=== PATIENT | male | born 1935 | race Caucasian/White ===

== ENCOUNTER → 2017-04-18 08:38 | Outpatient (CLI) | payer MEDICARE, SELFPAY ==
[2017-04-18 10:23] LABS: Cholesterol 174 mg/dL (200); High Density Lipoprotein 61 mg/dL; PSA,Total - Annual Screen 2.89 ng/mL (0.00-4.00); Triglycerides 125 mg/dL; Very Low Density Lipoprotein 25 mg/dL (5-40)
== END ==
PROVIDERS: Family Provider Family Medicine; PCP Family Medicine; Visit Provider Family Medicine
DX: Z00.00 Encounter for general adult medical examination without abnormal findings (principal); Z12.5 Encounter for screening for malignant neoplasm of prostate
CPT/HCPCS: 36415; 80061; 84153; G0103

== ENCOUNTER → 2018-01-13 08:24 | Outpatient (CLI) | payer MEDICARE, SELFPAY ==
[2018-01-13 10:38] LABS: Anion Gap 6 (5-15); BUN 17 mg/dL (7-18); BUN/Creat Ratio 13.4 RATIO (10-20); Calcium,Total 9.5 mg/dL (8.5-10.1); Chloride 106 mmol/L (98-107); Cholesterol 157 mg/dL (200); Creatinine, Serum 1.27 mg/dL (0.70-1.30); EST Glomerular Filtration Rate 57 mL/min (>60); Est Glom Filt Rate - Afr Amer 70 mL/min (>60); Glucose 90 mg/dL (74-106); High Density Lipoprotein 55 mg/dL; Potassium 5.2 mmol/L (3.5-5.1); Sodium Level 143 mmol/L (136-145); Triglycerides 109 mg/dL; Very Low Density Lipoprotein 22 mg/dL (5-40)
== END ==
PROVIDERS: Family Provider Family Medicine; PCP Family Medicine; Visit Provider Family Medicine
DX: I10 Essential (primary) hypertension (principal)
CPT/HCPCS: 36415; 80048; 80061

== ENCOUNTER → 2018-01-16 08:53 | Outpatient (CLI) | payer MEDICARE, SELFPAY ==
[2018-01-16 10:34] LABS: Anion Gap 5 (5-15); BUN 15 mg/dL (7-18); BUN/Creat Ratio 12.6 RATIO (10-20); Calcium,Total 9.1 mg/dL (8.5-10.1); Chloride 107 mmol/L (98-107); Creatinine, Serum 1.19 mg/dL (0.70-1.30); EST Glomerular Filtration Rate 62 mL/min (>60); Est Glom Filt Rate - Afr Amer 75 mL/min (>60); Glucose 93 mg/dL (74-106); Potassium 5.3 mmol/L (3.5-5.1); Sodium Level 143 mmol/L (136-145)
== END ==
PROVIDERS: Family Medicine; Family Provider Family Medicine; PCP Family Medicine; Visit Provider Family Medicine
DX: R94.4 Abnormal results of kidney function studies (principal)
CPT/HCPCS: 36415; 80048

== ENCOUNTER → 2018-01-22 09:16 | Outpatient (CLI) | payer MEDICARE, SELFPAY ==
[2018-01-22 10:26] LABS: Anion Gap 2 (5-15); BUN 17 mg/dL (7-18); BUN/Creat Ratio 15.7 RATIO (10-20); Chloride 106 mmol/L (98-107); Creatinine, Serum 1.08 mg/dL (0.70-1.30); EST Glomerular Filtration Rate 69 mL/min (>60); Est Glom Filt Rate - Afr Amer 84 mL/min (>60); Glucose 85 mg/dL (74-106); Potassium 4.7 mmol/L (3.5-5.1); Sodium Level 140 mmol/L (136-145)
== END ==
PROVIDERS: Family Medicine; Family Provider Family Medicine; PCP Family Medicine; Visit Provider Family Medicine
DX: E87.5 Hyperkalemia (principal)
CPT/HCPCS: 36415; 80048

== ENCOUNTER 2019-01-09 23:39 | Inpatient (IN) | payer MEDICARE, SELFPAY ==
[2019-01-09 23:40] VITALS: BP 161/82; PULSE 117; RESP 30; TEMP 36.4; O2SAT 72; BMI 21.7
--- NOTE | 2019-01-09 23:43 | ED.RN ---
PT PLACED ON O2 VIA NC AT 6L/MIN. PULSE OX INCREASED TO 94%. O2 DECREASEED TO 3L/MIN
[2019-01-09 23:44] VITALS: BP 161/82; PULSE 117; RESP 30; TEMP 36.4; O2SAT 72
[2019-01-09 23:45] VITALS: BP 188/103; PULSE 113; RESP 36; O2SAT 94
--- NOTE | 2019-01-09 23:56 | RAD_ITS ---
HISTORY: SOBShort of Breath/DyspneaRAD - Chest EXAM: XR Chest 1 View: COMPARISON: March 02, 2017 FINDINGS: # of images incl. paperwork: 1 Sternal wires are present. Mediastinal clips are present. Lungs remain hyperexpanded consistent with obstructive lung disease. Heart is not enlarged. Levoscoliosis with multilevel degenerative disc disease. Shoulder arthritis. Pulmonary vascularity is distinct. No pleural effusions. RAD/Chest 1 View (Portable) IMPRESSION: Pulmonary hyperexpansion suggestive of obstructive lung disease. No acute disease perceived. at 0020 Reported and signed by: Dano Jenkins MD Electronically Signed: Dano Jenkins MD at 0:19 EDT Tel , Service support ,
--- NOTE | 2019-01-09 23:56 | EKG12_ITS ---
Test Reason : SOB Blood Pressure : / mmHG Vent. Rate : 110 BPM Atrial Rate : 110 BPM P-R Int : 156 ms QRS Dur : 150 ms QT Int : 360 ms P-R-T Axes : 080 -81 072 degrees QTc Int : 487 ms Sinus tachycardia Possible Left atrial enlargement Left axis deviation Right bundle branch block Abnormal ECG Confirmed by MARGARETTE GONZALEZ, RENATA ([id number]), video editor KRISTI HERRMANN ([id number]) on 01/15/2019 10:15:29 AM Referred By: Dedrick Tsai Confirmed By:RENATA PFEIFFER MD
--- NOTE | 2019-01-09 23:58 | ED.VIS.GEN ---
History of Present Illness Chief Complaint: Shortness of Breath Informant: Patient Onset: Yesterday Context: Sudden Onset Timing: Waxes and wanes Current Severity: Severe Narrative: Patient is an 83-year-old male with history of coronary artery disease, ischemic cardiomyopathy, COPD and hypertension presenting with shortness of breath. Patient states that he has chronic coughing fits and episodes of shortness of breath that normally resolve with his albuterol inhaler. Since yesterday the coughing fits become more severe and are not improving with albuterol. Patient also notes he has had worsening pain in his back behind his shoulder blades. He states this feels like prior episode of pneumonia. He has had subjective fever. Patient had a particularly severe coughing episode just prior to arrival. He has had white sputum production. He currently denies any chest pain or back pain. He denies any vomiting but did feel nauseous with his last coughing episode. Any swelling of his extremities. He denies any history of pulmonary embolism or DVT. He is not on any anticoagulation. He denies any rash. He denies any other complaints at this time. Prior similar symptoms: Yes - Pneumonia Past Medical History - Allergies and Home Meds Allergies/Adverse Reactions: Allergies iodine Allergy (Severe, Verified 01/09/19 23:45) Rash amlodipine Adverse Reaction (Severe, Verified 01/09/19 23:45) SOB Past Medical History: - - COPD, coronary artery disease, ischemic cardiomyopathy, hypertension Surgical History: cholecystectomy, coronary bypass surgery Lives: With Family Smoking Status: Current every day smoker Review of Systems All systems negative except as indicated General: Reports: Fever, Subjective ENT: Reports: Rhinorrhea Respiratory: Reports: Dyspnea, Cough, Sputum Gastrointestinal: Reports: Nausea Physical Exam Vital Signs/Narrative: Vital Signs Temp Pulse Resp BP Pulse Ox 01/09/19 23:45 113 H 36 H 188/103 H 94 01/09/19 23:44 97.6 F L 117 H 30 H 161/82 H 72 01/09/19 23:40 97.6 F L 117 H 30 H 161/82 H 72 Inital Vital Signs reviewed: Yes General: Well nourished, Well developed, No Acute Distress Head: Normocephalic, Atraumatic Eyes: Perrl, EOMI ENT: No rhinorrhea, Dry mucous membranes Neck: Supple, Nontender Cardiovascular: Regular rhythm, No murmurs, Tachycardia Respiratory: Chest nontender, Wheezing - Diffuse, inspiratory and expiratory, Diminished - Bilaterally at the bases, - - Tachypneic. Negative for: Rales, Rhonchi Abdomen: Soft, Nontender, Nondistended, Normal bowel sounds Back: Nontender, Normal Inspection Extremities: Nontender, No edema Skin: Normal color, No rash Neurological: Alert, Oriented x3, Cranial nerves II-XII grossly intact, Normal Strength, Normal Sensation Psychological: Normal affect, Normal Mood Diagnostic/Tx/Re-eval Chest X-Ray - ED: 1 View, Read by ED Physician, Read by Radiologist, No Acute Disease, - - Hyperinflation Clinical Impression(s) from Imaging Studies Chest X-Ray 01/09/19 23:56 IMPRESSION: Pulmonary hyperexpansion suggestive of obstructive lung disease. No acute disease perceived. at 0020 Reported and signed by: Dano Jenkins MD Electronically Signed: Dano Jenkins MD at 0:19 EDT Tel , Service support , Laboratory Data 01/09/19 01/09/19 01/10/19 23:55 23:55 00:05 WBC 14.1 H RBC 5.35 Hgb 17.4 H Hct 52.8 MCV 98.7 H MCH 32.5 H MCHC 33.0 RDW Std Deviation 43.3 RDW Coeff of Alis 11.9 Plt Count 284 MPV 9.2 Immature Gran % (Auto) 0.300 Neut % (Auto) 74.2 H Lymph % (Auto) 16.4 L [place] % (Auto) 7.2 Eos % (Auto) 1.3 Baso % (Auto) 0.6 Absolute Neuts (auto) 10.5 H Absolute Lymphs (auto) 2.32 Nucleated RBC % 0 Sodium 140 Potassium 4.8 Chloride 104 Carbon Dioxide 28.0 Anion Gap 8 BUN 21 H Creatinine 1.17 Estim Creat Clear Calc 43.21 Est GFR (MDRD) Af Amer 76 Est GFR (MDRD) Non-Af 63 BUN/Creatinine Ratio 17.9 Glucose 138 H Lactic Acid 1.8 Calcium 9.8 Troponin I < 0.015 - Rhythm Strip Rhythm Strip: Sinus Tach Rate: 110 Ectopy: None - EKG Initial EKG Interpretation: Sinus Tachycardia, RBBB, - - Sinus tachycardia at a rate of 110 MA interval 156 QRS 150 QT/QTc 360/487 Left axis deviation Right bundle branch block Compared to prior EKG on 03/02/2017 patient is now tachycardic and has more pronounced T wave depressions in V1 through V2 - Medical Decision Making Patient is evaluated for worsening shortness of breath. It seems that the shortness of breath has been worsening over the past 2 days but significantly worsened tonight. When patient arrived to the ER he was hypoxic in respiratory distress with an O2 sat in the low 70s. Patient is placed on nasal cannula did have improvement of his breathing however he continued to be tachycardic and tachypneic. Patient had very tight lung sounds with wheezing. He was given IV steroids as well as stacked breathing treatments. On reevaluation patient did have significant improvement. He was still requiring some supplementary oxygen. Patient did have a leukocytosis and I am not sure if it was reactive versus infectious. Flu swab was negative. BMP showed a mild hyperglycemia but no other acute process. Chest x-ray did not show acute infiltrates. Clinically patient does not have signs of fluid overload. I suspect this is COPD exacerbation. Patient will require admission because of his profound hypoxia on admission. Tachycardia did improve as his breathing improved. Patient is admitted to the general medical floor in stable condition. Discussed the case with Dr. Tse who is agreeable with this plan. Patient is empirically given broad-spectrum antibiotic to cover for community acquired pneumonia based on his presentation and leukocytosis. ED Disposition - Plan for ED Patient: Disposition: Acute Care [facility] Diagnosis: COPD exacerbation, Acute respiratory failure with hypoxia
[2019-01-10] VITALS (22 sets, daily range): BP systolic 97–143; BP diastolic 40–74; PULSE 68–102; RESP 18–26; TEMP 36.6–37.1; O2SAT 91–98; BMI 22.2; BMI 22.3
[2019-01-10 00:06] LABS: Absolute Lymphocyte Count 2.32 X10^3/uL (0.83-4.51); Absolute Neutrophil Count 10.5 X10^3/uL (2.0-7.7); Basophil# 0.09 X10^3/uL; Basophil% 0.6 % (0-1); Eosinophil# 0.18 X10^3/uL; Eosinophils% 1.3 % (0-5); Hematocrit 52.8 % (40-54); Hemoglobin 17.4 g/dL (13.0-16.5); Lymphocyte # 2.32 X10^3/ul (4.0); Lymphocyte % 16.4 % (19-41); Mean Corpuscular Hgb 32.5 pg (27.0-32.0); Mean Corpuscular Volume 98.7 fL (80-94); Mean Platelet Vol. 9.2 fl (6.2-12.0); Monocyte# 1.02 X10^3/uL; Monocyte% 7.2 % (0-10); NRBC Flagged by Analyzer 0 % (0-5); Neutrophil # 10.48 X10^3/uL (2.7-7.7); Neutrophil % 74.2 % (47-70); Platelet Count 284 K/mm3 (150-450); RBC Distribution Width CV 11.9 % (11.6-14.6); RBC Distribution Width SD 43.3 fl (35.1-43.9); Red Blood Count 5.35 M/mm3 (4.6-6.2); White Blood Count 14.1 K/mm3 (4.4-11.0)
[2019-01-10] MEDS: Ipratropium/Albuterol Sulfate 3 ML AMPUL.NEB INHALATION ×3 (00:12→13:20)
[2019-01-10] MEDS: Albuterol 2.5 MG/3 ML VIAL.NEB. INHALATION (00:12)
[2019-01-10 00:23] LABS: Anion Gap 8 (5-15); BUN 21 mg/dL (7-18); BUN/Creat Ratio 17.9 RATIO (10-20); Calcium,Total 9.8 mg/dL (8.5-10.1); Chloride 104 mmol/L (98-107); Creatinine, Serum 1.17 mg/dL (0.70-1.30); EST Glomerular Filtration Rate 63 mL/min (>60); Est Glom Filt Rate - Afr Amer 76 mL/min (>60); Estimated Creatinine Clearance 43.21 ml/min; Glucose 138 mg/dL (74-106); Potassium 4.8 mmol/L (3.5-5.1); Sodium Level 140 mmol/L (136-145)
[2019-01-10] MEDS: MethylPREDNISolone 125 MG/2 ML Vial IV (00:23)
[2019-01-10 00:54] LABS: Lactic Acid 1.8 mmol/L (0.4-2.0)
--- NOTE | 2019-01-10 01:33 | PCM.HP.STD ---
Problem List (1) COPD exacerbation Status: Acute History of Present Illness Date of Admission: 01/10/19 Chief Complaint: shortness of breath The patient is a 83 year old M with a significant history of tobacco abuse; CAD status post triple-vessel CABG and coronary stents; hypertension; COPD without home oxygen; and ischemic cardiomyopathy who presented to emergency department with a 2-day history of shortness of breath at rest. Associated with symptoms is productive cough of thick clear sputum; and wheezing. Patient used his home inhalers multiple times without any real relief. Associated his symptoms is subjective fever and some chills. At the emergency department patient was found to have oxygen saturation of 76% on room air . His EKG showed sinus tachycardia with right bundle branch block. At the emergency department patient was found to have leukocytosis. Also he reports abdominal pain; chest pain and back pain that he associated with gas. His pain was relieved after he burped. Past Medical History Past Medical History (Chronic Problems): Chronic Problems (Last Reviewed 01/10/19 @ 02:38 by Dedrick Tsai MD) History of coronary artery stent placement (Chronic) PVCs (premature ventricular contractions) (Chronic) Atherosclerotic heart disease of [place] coronary artery without angina pectoris (Chronic) Chronic obstructive pulmonary disease (Chronic) Hypertension (Chronic) Ischemic cardiomyopathy (Chronic) EF 35% Medical History: Medical History (Last Reviewed 01/10/19 @ 02:38 by Dedrick Tsai MD) PVCs (premature ventricular contractions) (Chronic) I49.3 Atherosclerotic heart disease of [place] coronary artery without angina pectoris (Chronic) I25.10 Chronic obstructive pulmonary disease (Chronic) J44.9 Hypertension (Chronic) I10 Ischemic cardiomyopathy (Chronic) I25.5 EF 35% Allergies iodine Allergy (Severe, Verified 01/09/19 23:45) Rash amlodipine Adverse Reaction (Severe, Verified 01/09/19 23:45) SOB Home Medications: Ambulatory Orders Medication Instructions Recorded B Complex with Vitamin C 1 ea PO DAILY 09/16/16 [B-Complex Plus Vitamin C] Cyanocobalamin [Vitamin B12] 500 mcg PO DAILY@0800 09/16/16 Magnesium Oxide [Mag-Ox 400] 400 mg PO DAILY 09/16/16 Multivitamin [Multiple Vitamins] 1 ea PO DAILY 09/16/16 Red Yeast Rice 600 mg PO DAILY 09/16/16 furosemide 20 mg tablet 20 mg PO .As needed PRN tab 05/05/17 lisinopril 2.5 mg tablet 2.5 mg PO DAILY #90 tab 11/10/17 aspirin 81 mg tablet,delayed 81 mg PO .COMPLEX 11/18/17 release fluticasone furoate 100 1 inh INHALATION DAILY 11/18/17 mcg-vilanterol 25 mcg/dose inhalation powder Surgical History: Surgical History (Last Reviewed 01/10/19 @ 02:36 by Dedrick Tsai MD) History of coronary artery stent placement (Chronic) Z95.5 S/P CABG (coronary artery bypass graft) (Resolved) Onset Date: ~2002 Z95.1 VIVEROS to the LAD, SVG to the ramus intermedius circumflex branch, SVG to the PDA 2003 History of transurethral resection of prostate Z98.890, Z90.79 Surgical History: cholecystectomy, coronary bypass surgery Lives: With Family Smoking Status: Current every day smoker Tobacco Use: Pipe Alcohol: None Review of Systems Constitutional: Reports: Chills, Fever - Subjective. Denies: Weight Change HEENT: Denies: Head Aches, Sinus Congestion, Sinus Drainage Cardiovascular: Reports: Chest Pain - Resolved. Denies: Palpitations Respiratory: Reports: Cough, Shortness of breath at rest, Sputum production Gastrointestinal: Reports: Abdominal Pain - Resolved, Constipation - Resolved. Denies: Nausea, Vomiting Genitourinary: Denies: Dysuria Musculoskeletal: Reports: Back Pain - Resolved. Denies: Joint Pain, Joint Tenderness Skin: Denies: Rash, Wounds Neurological: Denies: Numbness, Tingling, Focal weakness Psychiatric: Denies: Anxiety, Depression, Homicidal Ideations, Suicidal Ideations Hematologic/ Lymphatic: Denies: Easy Bruising, Easy Bleeding VTE Information - Inpt Only VTE Present on Admission: No VTE Mechan Device Prophylaxis: None VTE Pharm Prophylaxis ordered?: Yes Patient Problems: Active and Suspected Problems (Last Reviewed 01/10/19 @ 02:38 by Dedrick Tsai MD) COPD exacerbation (Acute) - Physical Exam General: Alert, Oriented x3, Cooperative HEENT: Atraumatic, PERRLA, EOMI, Normocephalic Neck: Supple, No JVD, Negative Carotid Bruits Lungs: No rales, Tachypneic, Wheezes Cardiovascular: No murmurs Abdomen: Bowel Sounds Present, Soft, Non Tender Extremities: No edema, Capillary Refill Less than 3 Seconds Skin: No rashes, No breakdown Musculoskeletal: No Tenderness to Palpation of Joints or Extremities Neurological: Cranial nerves II-XII grossly intact Psych/Mental Status: Normal Affect, Appropriate Vital Signs Temp Pulse Resp BP Pulse Ox 97.6 F L 102 H 26 H 188/103 H 94 01/09/19 23:44 01/10/19 00:12 01/10/19 00:12 01/09/19 23:45 01/09/19 23:45 Oxygen Flow Rate (L/min) 4 Oxygen Delivery Method Nasal Cannula Weight: 65 kg Body Mass Index (BMI) 21.7 Intake and Output for Last 24 Hours 01/08/19 01/09/19 01/10/19 23:59 23:59 23:59 Intake Total 500 / 500 Balance 500 / 500 Microbiology Past 72 Hours 01/10/19 00:36 Influenza Types A,B Direct FA (MARCELINO) - Final Mucosa - Nose Laboratory Tests Past 24 Hrs 01/09/19 01/09/19 01/10/19 23:55 23:55 00:05 WBC 14.1 H RBC 5.35 Hgb 17.4 H Hct 52.8 MCV 98.7 H MCH 32.5 H MCHC 33.0 RDW Std Deviation 43.3 RDW Coeff of Alis 11.9 Plt Count 284 MPV 9.2 Immature Gran % (Auto) 0.300 Neut % (Auto) 74.2 H Lymph % (Auto) 16.4 L [place] % (Auto) 7.2 Eos % (Auto) 1.3 Baso % (Auto) 0.6 Absolute Neuts (auto) 10.5 H Absolute Lymphs (auto) 2.32 Nucleated RBC % 0 Sodium 140 Potassium 4.8 Chloride 104 Carbon Dioxide 28.0 Anion Gap 8 BUN 21 H Creatinine 1.17 Estim Creat Clear Calc 43.21 Est GFR (MDRD) Af Amer 76 Est GFR (MDRD) Non-Af 63 BUN/Creatinine Ratio 17.9 Glucose 138 H Lactic Acid 1.8 Calcium 9.8 Troponin I < 0.015 Assessment/Plan All Active Problems (Last Reviewed 01/10/19 @ 02:36 by Dedrick Tsai MD) COPD exacerbation (Acute) S/P CABG (coronary artery bypass graft) (Resolved ~2002) The patient is a 83 year old M with a significant history of tobacco abuse; CAD status post triple-vessel CABG and coronary stents; hypertension; COPD without home oxygen; and ischemic cardiomyopathy who presented to emergency department with a 2-day history of shortness of breath at rest; wheezing; subjective fever; chills; and productive cough consistent with acute exacerbation of COPD. Acute exacerbation of COPD CXR independently reviewed confirms hyperinflation with some flattening of diaphragm but with no acute cardiopulmonary process. EKG independently reviewed confirms sinus tach with right bundle branch block. Vital signs on presentation showed tachycardia and tachypnea; and with use of accessory muscles of respiration while at the emergency department and requiring to be placed on 3 to 4 L of nasal cannula oxygen secondary to hypoxia. Noted to have neutrophilic leukocytosis. Scheduled DuoNeb Albuterol as needed. Home corticosteroid inhaler continued. Received Solu-Medrol at the emergency department. Solu-Medrol continued Ceftriaxone and azithromycin was ordered emergency department. Will continue patient on Augmentin. Expectorant ordered. Oxygen as needed to maintain oxygen saturation more than 90%. Monitor CBC Gastroesophageal reflux disease Mylanta as needed ordered. Hypertension His blood pressure is stable in regard to his age. Lisinopril continued. Trend blood pressure and adjust blood pressure medication. Ischemic cardiomyopathy Aspirin continued. Tobacco abuse He smokes pipe. He declined nicotine patch since he does not smoke the pipe all the time. Counseled. 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 Likely secondary to smoking and COPD. DVT prophylaxis Subcutaneous Lovenox Code Visit Inpatient E&M: 30058 Init Hosp L3
[2019-01-10] MEDS: Ceftriaxone 1 GM/50 ML BAG IV (01:52)
[2019-01-10] MEDS: 0.9% Saline Lock 10 ML Syringe IV ×3 (02:58→21:07)
[2019-01-10 05:54] LABS: Absolute Lymphocyte Count 0.35 X10^3/uL (0.83-4.51); Absolute Neutrophil Count 8.7 X10^3/uL (2.0-7.7); Basophil# 0.02 X10^3/uL; Basophil% 0.2 % (0-1); Hematocrit 43.1 % (40-54); Hemoglobin 14.3 g/dL (13.0-16.5); Lymphocyte # 0.35 X10^3/ul (4.0); Lymphocyte % 3.8 % (19-41); Mean Corp Hgb Conc 33.2 g/dL (32-36); Mean Corpuscular Hgb 32.4 pg (27.0-32.0); Mean Corpuscular Volume 97.5 fL (80-94); Mean Platelet Vol. 9.5 fl (6.2-12.0); Monocyte# 0.05 X10^3/uL; Monocyte% 0.5 % (0-10); NRBC Flagged by Analyzer 0 % (0-5); Neutrophil # 8.66 X10^3/uL (2.7-7.7); Neutrophil % 95.2 % (47-70); POSITIVE DIFFERENTIAL YES; Platelet Count 245 K/mm3 (150-450); RBC Distribution Width CV 12.1 % (11.6-14.6); RBC Distribution Width SD 43.5 fl (35.1-43.9); Red Blood Count 4.42 M/mm3 (4.6-6.2); White Blood Count 9.1 K/mm3 (4.4-11.0)
[2019-01-10 05:57] LABS: Differential Indicated SCAN CRITERIA MET
[2019-01-10 06:40] LABS: Differential Comment SCANNED
[2019-01-10] MEDS: Multivitamins,Therapeutic Tablet 1 TABLET PO (08:54)
[2019-01-10] MEDS: Cyanocobalamin 500 MCG Tablet PO (08:54)
[2019-01-10] MEDS: Vitamin B Comp W-C Capsule 1 CAP PO (08:54)
--- NOTE | 2019-01-10 09:49 | PN_ITS ---
Patient Problems: Active and Suspected Problems (Last Reviewed 01/10/19 @ 02:38 by Dedrick Tsai MD) COPD exacerbation (Acute) Acute respiratory failure with hypoxia (Acute) Subjective: Chief complaint: Follow-up after admission for acute COPD exacerbation with acute hypoxic respiratory failure. Patient seen and examined. No acute events overnight. Today, patient mentioned that his breathing is getting better compared to yesterday. He does have cough but without phlegm which is difficult to expectorate. He has no more pleuritic chest pain. He has been afebrile, blood pressure and heart rate are stable, pulse ox is 93% on 2 L. - Physical Exam General: Alert, Oriented x3, Cooperative, - - Minimally short of breath. HEENT: Atraumatic, PERRLA, EOMI, Normocephalic Oral: Moist Mucosa, No Gingival or Mucosal Lesions/ Ulcerations Neck: Supple, No JVD, Negative Carotid Bruits, Trachea Midline, Thyroid Normal Size and Texture Lungs: No rhonchi, No rales, Diminished, Short of Breath, Wheezes, - - Decreased breath sounds bilateral, bilateral end expiratory wheezes. Cardiovascular: Regular rate, Regular Rhythm, Normal S1, Normal S2, PMI Normal Abdomen: Bowel Sounds Present, Soft, Non Tender, Non-Distended, No Hepato- splenomegaly Extremities: No clubbing, No cyanosis, No edema Skin: No rashes, No breakdown Lymphatic: No Cervical, Supraclavicular, or Inguinal Adenopathy Neurological: Cranial nerves II-XII grossly intact, Motor Exam 5/5 strength throughout Psych/Mental Status: Normal Affect, Appropriate, Alert and oriented to time, place, person, mood and affect Vital Signs Temp Pulse Resp BP Pulse Ox 98.6 F 73 23 H 105/57 L 93 01/10/19 08:48 01/10/19 08:48 01/10/19 08:48 01/10/19 08:48 01/10/19 08:48 Oxygen Flow Rate (L/min) 2 Oxygen Delivery Method Nasal Cannula Weight: 138 lb 0.15 oz Body Mass Index (BMI) 22.2 Intake and Output for Last 24 Hours 01/08/19 01/09/19 01/10/19 23:59 23:59 23:59 Intake Total 808.75 / 808.75 Balance 808.75 / 808.75 Microbiology Past 72 Hours 01/10/19 00:36 Influenza Types A,B Direct FA (MARCELINO) - Final Mucosa - Nose Laboratory Tests Past 24 Hrs 01/09/19 01/09/19 01/10/19 23:55 23:55 00:05 WBC 14.1 H RBC 5.35 Hgb 17.4 H Hct 52.8 MCV 98.7 H MCH 32.5 H MCHC 33.0 RDW Std Deviation 43.3 RDW Coeff of Alis 11.9 Plt Count 284 MPV 9.2 Immature Gran % (Auto) 0.300 Neut % (Auto) 74.2 H Lymph % (Auto) 16.4 L [place] % (Auto) 7.2 Eos % (Auto) 1.3 Baso % (Auto) 0.6 Absolute Neuts (auto) 10.5 H Absolute Lymphs (auto) 2.32 Nucleated RBC % 0 Differential Comment Sodium 140 Potassium 4.8 Chloride 104 Carbon Dioxide 28.0 Anion Gap 8 BUN 21 H Creatinine 1.17 Estim Creat Clear Calc 43.21 Est GFR (MDRD) Af Amer 76 Est GFR (MDRD) Non-Af 63 BUN/Creatinine Ratio 17.9 Glucose 138 H Lactic Acid 1.8 Calcium 9.8 Troponin I < 0.015 01/10/19 05:10 WBC 9.1 RBC 4.42 L Hgb 14.3 Hct 43.1 MCV 97.5 H MCH 32.4 H MCHC 33.2 RDW Std Deviation 43.5 RDW Coeff of Alis 12.1 Plt Count 245 MPV 9.5 Immature Gran % (Auto) 0.300 Neut % (Auto) 95.2 H Lymph % (Auto) 3.8 L [place] % (Auto) 0.5 Eos % (Auto) 0.0 Baso % (Auto) 0.2 Absolute Neuts (auto) 8.7 H Absolute Lymphs (auto) 0.35 L Nucleated RBC % 0 Differential Comment SCANNED Sodium Potassium Chloride Carbon Dioxide Anion Gap BUN Creatinine Estim Creat Clear Calc Est GFR (MDRD) Af Amer Est GFR (MDRD) Non-Af BUN/Creatinine Ratio Glucose Lactic Acid Calcium Troponin I Clinical Impression(s) from Imaging Studies Chest X-Ray 01/09/19 23:56 IMPRESSION: Pulmonary hyperexpansion suggestive of obstructive lung disease. No acute disease perceived. at 0020 Reported and signed by: Dano Jenkins MD Electronically Signed: Dano Jenkins MD at 0:19 EDT Tel , Service support , Medical Necessity - Tobacco Use Smoking Status: Current every day smoker Tobacco Use: Pipe Assessment/Plan All Active Problems (Last Reviewed 01/10/19 @ 02:38 by Dedrick Tsai MD) COPD exacerbation (Acute) Acute respiratory failure with hypoxia (Acute) This is an 83 years old male patient presented to the emergency room because of shortness of breath and pleuritic chest pain, found to have acute COPD exacerbat ion complicated by acute hypoxic respiratory failure. #1 acute COPD exacerbation: Chest x-ray showed no acute findings. Patient is on IV Solu-Medrol, oral Augmentin and bronchodilators. Patient reported improvement of his symptoms but still requiring oxygen at 2 L. Pneumonia ruled out. Patient is longtime smoker but never been on oxygen before. Influenza a and B were negative. Plan to continue same treatment, wean off oxygen as tolerated, possible DC home tomorrow. #2 acute hypoxic respiratory failure: Secondary to above. Upon arrival to ER, patient was dyspneic, tachypneic, tachycardic and pulse ox was 72% on room air. He required up to 4 L of oxygen. Today, he is on 2 L, symptoms are improving. Plan as above. #3 CAD status post CABG and stents: Patient reported pleuritic chest pain, resolved today. EKG revealed no acute ischemic changes. Troponin was negative. Continue aspirin and lisinopril. #4 ischemic cardiomyopathy: Clinically stable, compensated. Patient is only on lisinopril small dose. #5 hypertension: Blood pressure stable, continue current medications. #6 DVT prophylaxis: Subcu Lovenox. This note was generated with [email or web address] dictation software. It may contain incorrect words, spelling, and punctuation that were not noted in checking the note before signing. Code Visit Inpatient E&M: 54185 Subs Hosp L2
[2019-01-10] MEDS: Lisinopril 2.5 MG Tablet PO (10:26)
[2019-01-10] MEDS: Magnesium Oxide 400 MG Tablet PO (10:26)
[2019-01-10] MEDS: Enoxaparin 40 MG/0.4 ML Syringe SC (10:26)
[2019-01-10] MEDS: Amox/Clavulanate 875 MG Tablet PO (16:57)
[2019-01-10] MEDS: Acetaminophen 325 MG Tablet 650 MG PO (21:06)
[2019-01-11] VITALS (8 sets, daily range): BP systolic 111–121; BP diastolic 51–54; PULSE 45–74; RESP 16–22; TEMP 36.3; O2SAT 90–100
[2019-01-11] MEDS: 0.9% Saline Lock 10 ML Syringe IV (05:57)
[2019-01-11] MEDS: Ipratropium/Albuterol Sulfate 3 ML AMPUL.NEB INHALATION (07:40)
[2019-01-11] MEDS: Vitamin B Comp W-C Capsule 1 CAP PO (08:22)
[2019-01-11] MEDS: Cyanocobalamin 500 MCG Tablet PO (08:22)
[2019-01-11] MEDS: Aspirin E.C. 81 MG Tablet PO (08:22)
[2019-01-11] MEDS: Amox/Clavulanate 875 MG Tablet PO (08:22)
[2019-01-11] MEDS: Multivitamins,Therapeutic Tablet 1 TABLET PO (08:22)
--- NOTE | 2019-01-11 09:26 | DCINST_ITS ---
- Discharge Diagnoses Current Active Problems: Current Active and Chronic Problems (Last Reviewed 01/10/19 @ 02:38 by Dedrick Tsai MD) COPD exacerbation (Acute) Acute respiratory failure with hypoxia (Acute) You will use the following diet at home:: Cardiac Your food should be the consistency of: Regular Discharge Activity: May Not Drive Weight Bearing Status: Weight bearing as tolerated Allergies/Adverse Reactions: Allergies iodine Allergy (Severe, Verified 01/09/19 23:45) Rash amlodipine Adverse Reaction (Severe, Verified 01/09/19 23:45) SOB Medications to take at Discharge B Complex with Vitamin C [B-Complex Plus Vitamin C] 1 ea PO DAILY 09/16/16 Cyanocobalamin [Vitamin B12] 500 mcg PO DAILY@0800 09/16/16 Magnesium Oxide [Mag-Ox 400] 400 mg PO DAILY 09/16/16 Multivitamin [Multiple Vitamins] 1 ea PO DAILY 09/16/16 Red Yeast Rice 600 mg PO DAILY 09/16/16 lisinopril 2.5 mg tablet 2.5 mg PO DAILY #90 tab 11/10/17 aspirin 81 mg tablet,delayed release 81 mg PO .COMPLEX 11/18/17 Fluticasone/Vilanterol [Breo Ellipta 100-25 Mcg INH] 1 puff INHALATION DAILY 01/10/19 Red Yeast Rice 600 mg PO DAILY 01/10/19 Azithromycin [Zithromax] 500 mg PO DAILY #2 tab 01/11/19 Prednisone 10 mg PO DAILY #30 tab 01/11/19 Sennosides/Docusate Sodium [Senna-S Tablet] 1 ea PO BID PRN PRN #30 tab 01/11/19 The following prescriptions were given: Prednisone 10 mg PO DAILY #30 tab Prescription Printed Sennosides/Docusate Sodium [Senna-S Tablet] 1 ea PO BID PRN PRN #30 tab PRN Reason: constipation Transmission Status: Pending to [id number] Azithromycin [Zithromax] 500 mg PO DAILY #2 tab Prescription Printed Primary Care Physician: Sergio Vann MD [Primary Care Provider] - Please follow up with your Primary Care Physician in: in 1-2 weeks Test Results: Test results from this visit will be discussed in further detail at your follow- up appointment, if applicable. Please Follow Up With: Sergio Smith MD When: on 01/18
--- NOTE | 2019-01-11 09:27 | DS.PCM_ITS ---
Discharge Date and Diagnosis Date of Admission: 01/10/19 Date of Discharge: 01/11/19 - Primary Discharge Diagnosis Active and Suspected Problems (Last Reviewed 01/10/19 @ 02:38 by Dedrick Tsai MD) COPD exacerbation (Acute) Acute respiratory failure with hypoxia (Acute) - Secondary Discharge Diagnosis Chronic Problems (Last Reviewed 01/10/19 @ 02:38 by Dedrick Tsai MD) History of coronary artery stent placement (Chronic) PVCs (premature ventricular contractions) (Chronic) Atherosclerotic heart disease of [place] coronary artery without angina pectoris (Chronic) Chronic obstructive pulmonary disease (Chronic) S/P CABG (coronary artery bypass graft) (Chronic ~2002) VIVEROS to the LAD, SVG to the ramus intermedius circumflex branch, SVG to the PDA 2002 Hypertension (Chronic) Ischemic cardiomyopathy (Chronic) EF 35% Hospital Course and Treatment Summary of Care Provided: [] This is an 83 years old male patient presented to the emergency room because of shortness of breath and pleuritic chest pain, found to have acute COPD exacerbation complicated by acute hypoxic respiratory failure. #1 acute COPD exacerbation: Chest x-ray showed no acute findings. Patient is on IV Solu-Medrol, oral Augmentin and bronchodilators. Patient reported improvement of his symptoms but still requiring oxygen at 2 L. Pneumonia ruled out. Patient is longtime smoker but never been on oxygen before. Influenza a and B were negative. Walking pulse oximetry was done shows 91% ambulating on room air and at rest 90% on room air. Patient did not need oxygen. No PFT. Patient was advised to follow with PCP and to schedule PFT with reel tender. Patient does not have a focus of infection or any concerning symptoms of sepsis. Augmentin discontinued. Patient will need 2 more days of Zithromax for COPD exacerbation and prescription sent to the pharmacy. Prescription given for tapering dose of prednisone and Mucinex #2 acute hypoxic respiratory failure secondary to COPD exacerbation: Upon arrival to ER, patient was dyspneic, tachypneic, tachycardic and pulse ox was 72% on room air. He required up to 4 L of oxygen. Resolved as mentioned above #3 CAD status post CABG and stents: Patient reported pleuritic chest pain, resolved today. EKG revealed no acute ischemic changes. Troponin was negative. Continue aspirin and lisinopril. Patient has follow-up with Dr. Smith on January 18, 2019 #4 ischemic cardiomyopathy: Clinically stable, compensated. Patient is only on lisinopril small dose. #5 hypertension: Blood pressure stable, continue current medications. #6 DVT prophylaxis: Subcu Lovenox. Discharge medication reconciliation done. Discharge follow-up instructions completed. Discharge process discussed with the patient and all questions were answered to patient's satisfaction. Total time spent, exact 35 minutes on discharge meds reconciliation, examination, review of imaging and blood test and discussion with the patient on follow-up instructions. Subjective: Seen and examined. Patient shortness of breath has resolved. No acute events overnight. No chest pain. Chronic cough and mild chest congestion, difficult to expectorate. Patient states he uses noninvasive pressure ventilation at night but not sure whether BiPAP or CPAP. Denies using oxygen at home. History of chronic tobacco use, coronary artery disease status post triple- vessel CABG and stents, hypertension and COPD - Physical Exam General: Alert, Oriented x3, Cooperative HEENT: Atraumatic, PERRLA, EOMI, Normocephalic Oral: Moist Mucosa Neck: Supple, No JVD, Negative Carotid Bruits Lungs: No rales, Diminished - Air entry is diminished, Rhonchi Cardiovascular: Regular rate, Regular Rhythm, Normal S1, Normal S2, No murmurs Abdomen: Bowel Sounds Present, Soft, Non Tender, Non-Distended Extremities: No edema, Capillary Refill Less than 3 Seconds Skin: No rashes, No breakdown Musculoskeletal: No Tenderness to Palpation of Joints or Extremities, Arthritic Changes Neurological: Cranial nerves II-XII grossly intact, Deep Tendon Reflexes 2+/4 and Symmetrical, Neuro grossly intact Psych/Mental Status: Normal Affect, Appropriate Vital Signs Temp Pulse Resp BP Pulse Ox 97.3 F L 45 L 22 H 121/51 H 100 01/11/19 01:54 01/11/19 08:09 01/11/19 08:09 01/11/19 08:09 01/11/19 08:09 Oxygen Flow Rate (L/min) 2 Oxygen Delivery Method Nasal Cannula Weight: 138 lb 0.15 oz Body Mass Index (BMI) 22.2 Intake and Output for Last 24 Hours 01/09/19 01/10/19 01/11/19 23:59 23:59 23:59 Intake Total 1308.75 / 1308.75 200 / 200 Balance 1308.75 / 1308.75 200 / 200 Microbiology Past 72 Hours 01/10/19 00:36 Influenza Types A,B Direct FA (MARCELINO) - Final Mucosa - Nose Discharge Activity: May Not Drive Weight Bearing Status: Weight bearing as tolerated Home Medications: Medications to take at Discharge B Complex with Vitamin C [B-Complex Plus Vitamin C] 1 ea PO DAILY 09/16/16 Cyanocobalamin [Vitamin B12] 500 mcg PO DAILY@0800 09/16/16 Magnesium Oxide [Mag-Ox 400] 400 mg PO DAILY 09/16/16 Multivitamin [Multiple Vitamins] 1 ea PO DAILY 09/16/16 Red Yeast Rice 600 mg PO DAILY 09/16/16 lisinopril 2.5 mg tablet 2.5 mg PO DAILY #90 tab 11/10/17 aspirin 81 mg tablet,delayed release 81 mg PO .COMPLEX 11/18/17 Fluticasone/Vilanterol [Breo Ellipta 100-25 Mcg INH] 1 puff INHALATION DAILY 01/10/19 Red Yeast Rice 600 mg PO DAILY 01/10/19 Azithromycin [Zithromax] 500 mg PO DAILY #2 tab 01/11/19 Prednisone 10 mg PO DAILY #30 tab 01/11/19 Sennosides/Docusate Sodium [Senna-S Tablet] 1 ea PO BID PRN PRN #30 tab 01/11/19 Following Prescrptions Were Given to Patient: Prednisone 10 mg PO DAILY #30 tab Prescription Printed Sennosides/Docusate Sodium [Senna-S Tablet] 1 ea PO BID PRN PRN #30 tab PRN Reason: constipation Transmission Status: Received by [id number] Azithromycin [Zithromax] 500 mg PO DAILY #2 tab Prescription Printed Primary Care Physician: Sergio Vann MD [Primary Care Provider] - Please follow up with your Primary Care Physician in: in 1-2 weeks; need PFT and Pulm consult Please Follow Up With: Sergio Smith MD When: on 01/18 Medical Necessity - Tobacco Use Smoking Status: Current every day smoker Tobacco Use: Pipe Meaningful Use Info Meaningful Use Diagnoses (Choose all that apply): None applicable
--- NOTE | 2019-01-11 10:00 | CASEMGMT ---
RN SEB Face to Face with patient for initial transition planning/care coordination assessment. RN CM introduced self and role at [facility]. Patient sitting in chair, alert and oriented, at bedside. Patient willing to participate in assessment and is able to answer all questions appropriately. Care providers, pharmacy, and demographics verified. Patient wishes to discharge home, denies need for home health at this time. Patient states he has no further needs or concerns at this time. CM to follow for discharge planning needs that may arise. PCP: Soo Specialists: Sarah Preferred [facility] P[facility] Prescription Benefit: yes Living Will/HPOA: none LNOK: Living Arrangements: patient lives with in 1 story home with ramp to enter the home. Transportation: self/ DME/HHC: Patient has walker and rollator at home. Denies previous HHC or SNF Disposition Plan: Patient to discharge home with family support and follow-up plans in place. Jerri BASSETT, RN, CM
[2019-01-11] MEDS: Enoxaparin 40 MG/0.4 ML Syringe SC (10:03)
[2019-01-11] MEDS: Magnesium Oxide 400 MG Tablet PO (10:04)
[2019-01-11] MEDS: Lisinopril 2.5 MG Tablet PO (10:13)
--- NOTE | 2019-01-12 14:09 | CASEMGMT ---
KRYSTLE GRIGSBY DC PHONE CALL DC DATE: 01/11/19 DC Disposition: Home Diagnosis on Discharge: COPD exacerbation LACE/STRATA: 11/24 Intro role of CM to patient's via phone. states pt is doing well, improving. Had questions re: prednisone doseage. KRYSTLE GRIGSBY had read label and explained pt is to take 40 mg daily x # of days, then go to next doseage x # days. understands now and will assist patient. No care improvement suggestions, no further questions. Reviewed dc appointments and will assist pt with going to f/u. A.Matt BSN RN ACM
== END 2019-01-11 12:49 | disposition home or self-care (01) | DRG 189 ==
LOC: ED 01-10 01:41 → MS3 01-10 02:49
PROVIDERS: Admitting Provider Hospitalist; Emergency Provider Emergency Medicine; Family Provider Family Medicine; PCP Family Medicine; Referring Provider Hospitalist; Visit Provider Internal Medicine
DX: J96.01 Acute respiratory failure with hypoxia (principal); J44.1 Chronic obstructive pulmonary disease with (acute) exacerbation; I25.10 Atherosclerotic heart disease of native coronary artery without angina pectoris; I25.5 Ischemic cardiomyopathy; I10 Essential (primary) hypertension; Z95.1 Presence of aortocoronary bypass graft; Z95.5 Presence of coronary angioplasty implant and graft; Z72.0 Tobacco use
CPT/HCPCS: 36415; 71045; 80048; 83605; 84484; 85025; 87804; 93005; 94640; 97162; 97165; 99285; J7040; J7050; A4216

== ENCOUNTER → 2019-01-27 | Outpatient (CLI) | payer MEDICARE, SELFPAY ==
[2019-01-18 09:23] VITALS: BMI 22.7
[2019-01-27 09:29] LABS: AST(SGOT) 19 U/L (15-37); Alanine Aminotransfer ALT/SGPT 28 U/L (16-61); Albumin, Serum 3.3 g/dL (3.2-5.0); Alkaline Phosphatase 89 U/L (45-117); Bilirubin, Direct 0.33 mg/dL (0.00-0.30); Cholesterol 178 mg/dL (200); Globulin 3.9 g/dL (2.2-4.2); High Density Lipoprotein 83 mg/dL; Protein, Total 7.2 g/dL (6.4-8.2); Triglycerides 102 mg/dL; Very Low Density Lipoprotein 20 mg/dL (5-40)
== END | disposition home or self-care (01) ==
PROVIDERS: Family Provider Family Medicine; PCP Family Medicine; Referring Provider Internal Medicine Cardiovascular Disease; Visit Provider Internal Medicine Cardiovascular Disease
DX: E78.5 Hyperlipidemia, unspecified (principal)
CPT/HCPCS: 36415; 80061; 80076

== ENCOUNTER → 2019-05-12 09:45 | Outpatient (CLI) | payer MEDICARE, SELFPAY ==
[2019-01-18 09:23] VITALS: BMI 22.7
[2019-05-12 12:29] LABS: Absolute Lymphocyte Count 2.09 X10^3/uL (0.83-4.51); Absolute Neutrophil Count 4.7 X10^3/uL (2.0-7.7); Basophil# 0.06 X10^3/uL; Basophil% 0.7 % (0-1); Eosinophil# 0.33 X10^3/uL; Eosinophils% 4.1 % (0-5); Hematocrit 50.7 % (40-54); Hemoglobin 15.9 g/dL (13.0-16.5); Lymphocyte # 2.09 X10^3/ul (4.0); Mean Corp Hgb Conc 31.4 g/dL (32-36); Mean Corpuscular Hgb 31.4 pg (27.0-32.0); Mean Corpuscular Volume 100.2 fL (80-94); Mean Platelet Vol. 9.8 fl (6.2-12.0); Monocyte# 0.85 X10^3/uL; Monocyte% 10.6 % (0-10); NRBC Flagged by Analyzer 0 % (0-5); Neutrophil # 4.71 X10^3/uL (2.7-7.7); Neutrophil % 58.5 % (47-70); Platelet Count 232 K/mm3 (150-450); RBC Distribution Width CV 12.9 % (11.6-14.6); RBC Distribution Width SD 47.7 fl (35.1-43.9); Red Blood Count 5.06 M/mm3 (4.6-6.2); White Blood Count 8.1 K/mm3 (4.4-11.0)
[2019-05-12 12:54] LABS: Anion Gap 4 (5-15); BUN 16 mg/dL (7-18); BUN/Creat Ratio 14.7 RATIO (10-20); Calcium,Total 9.5 mg/dL (8.5-10.1); Chloride 106 mmol/L (98-107); Creatinine, Serum 1.09 mg/dL (0.70-1.30); EST Glomerular Filtration Rate 68 mL/min (>60); Est Glom Filt Rate - Afr Amer 83 mL/min (>60); Glucose 86 mg/dL (74-106); Potassium 4.2 mmol/L (3.5-5.1); Sodium Level 141 mmol/L (136-145)
== END ==
PROVIDERS: PCP Family Medicine; Referring Provider Family Medicine; Visit Provider Family Medicine
DX: R09.02 Hypoxemia (principal)
CPT/HCPCS: 36415; 80048; 85025

== ENCOUNTER → 2019-09-01 09:01 | Outpatient (CLI) | payer MEDICARE, SELFPAY ==
[2019-07-05 09:55] VITALS: BMI 22.7
[2019-09-01 10:57] LABS: Anion Gap 5 (5-15); BUN 13 mg/dL (7-18); BUN/Creat Ratio 12.6 RATIO (10-20); Calcium,Total 9.1 mg/dL (8.5-10.1); Chloride 108 mmol/L (98-107); Cholesterol 179 mg/dL (200); Creatinine, Serum 1.03 mg/dL (0.70-1.30); EST Glomerular Filtration Rate 73 mL/min (>60); Est Glom Filt Rate - Afr Amer 88 mL/min (>60); Glucose 89 mg/dL (74-106); High Density Lipoprotein 64 mg/dL; Potassium 4.3 mmol/L (3.5-5.1); Sodium Level 143 mmol/L (136-145); Triglycerides 94 mg/dL; Very Low Density Lipoprotein 19 mg/dL (5-40)
== END ==
PROVIDERS: PCP Family Medicine; Visit Provider Family Medicine
DX: I10 Essential (primary) hypertension (principal)
CPT/HCPCS: 36415; 80048; 80061

== ENCOUNTER → 2019-09-20 15:45 | Outpatient (CLI) | payer MEDICARE, SELFPAY ==
[2019-07-05 09:55] VITALS: BMI 22.7
[2019-09-20 20:29] LABS: Vitamin B12 > 2000 pg/mL (211-911)
== END ==
PROVIDERS: PCP Family Medicine; Visit Provider Family Medicine
DX: E53.8 Deficiency of other specified B group vitamins (principal)
CPT/HCPCS: 36415; 82607

== ENCOUNTER 2020-02-17 03:11 | Inpatient (IN) | payer MEDICARE, SELFPAY ==
[2019-07-05 09:55] VITALS: BMI 22.7
[2020-02-17] VITALS (16 sets, daily range): BP systolic 90–130; BP diastolic 49–86; PULSE 80–115; RESP 16–27; TEMP 36.5–37.1; O2SAT 93–98; BMI 22.8; BMI 21.5; BMI 21.6
--- NOTE | 2020-02-17 03:14 | EKG12_ITS ---
Test Reason : SOB Blood Pressure : / mmHG Vent. Rate : 110 BPM Atrial Rate : 110 BPM P-R Int : 168 ms QRS Dur : 138 ms QT Int : 346 ms P-R-T Axes : 076 -85 034 degrees QTc Int : 468 ms Sinus tachycardia Left axis deviation Right bundle branch block Septal infarct , age undetermined T wave abnormality, consider lateral ischemia Abnormal ECG Confirmed by MARGARETTE GONZALEZ, RENATA ([id number]), senior technical editor SANDRA THORPE ([id number]) on 02/18/2020 11:12:33 AM Referred By: ALE Confirmed By:RENATA PFEIFFER MD
[2020-02-17 03:26] LABS: Absolute Lymphocyte Count 1.35 X10^3/uL (0.83-4.51); Absolute Neutrophil Count 12.7 X10^3/uL (2.0-7.7); Basophil# 0.04 X10^3/uL; Basophil% 0.3 % (0-1); Eosinophil# 0.07 X10^3/uL; Eosinophils% 0.4 % (0-5); Hemoglobin 16.2 g/dL (13.0-16.5); Lymphocyte # 1.35 X10^3/ul (4.0); Lymphocyte % 8.5 % (19-41); Mean Corp Hgb Conc 32.4 g/dL (32-36); Mean Corpuscular Hgb 32.9 pg (27.0-32.0); Mean Corpuscular Volume 101.6 fL (80-94); Mean Platelet Vol. 9.8 fl (6.2-12.0); Monocyte# 1.62 X10^3/uL; Monocyte% 10.2 % (0-10); NRBC Flagged by Analyzer 0 % (0-5); Neutrophil # 12.73 X10^3/uL (2.7-7.7); Neutrophil % 80.2 % (47-70); POSITIVE DIFFERENTIAL YES; Platelet Count 264 K/mm3 (150-450); RBC Distribution Width CV 12.6 % (11.6-14.6); RBC Distribution Width SD 47.5 fl (35.1-43.9); Red Blood Count 4.92 M/mm3 (4.6-6.2); White Blood Count 15.9 K/mm3 (4.4-11.0)
[2020-02-17] MEDS: Albuterol 2.5 MG/3 ML VIAL.NEB. INHALATION (03:27)
[2020-02-17 03:29] LABS: Differential Indicated SCAN CRITERIA MET
--- NOTE | 2020-02-17 03:40 | RAD_ITS ---
STUDY: X-RAY CHEST REASON FOR EXAM: Male, 84 years old patient with shortness of breath. TECHNIQUE: Two AP portable views of the chest. COMPARISON: Chest radiograph dated 01/10/2019. FINDINGS: Cardiac monitoring leads are present. The patient has had a sternotomy. There is hyperinflation of the lungs consistent with chronic obstructive lung disease (COPD). There is no demonstrated pleural abnormality. Normal size heart. Normal mediastinum and rajan. Normal visualized pulmonary arteries. There is atherosclerotic calcification of the aortic arch with tortuosity. There is demineralization of the osseous structures. There are degenerative changes of the spine. There is no demonstrated abnormality of the visualized soft tissue structures of the upper abdomen. RAD/Chest 1 View (Portable) IMPRESSION: No radiographic evidence of acute cardiopulmonary disease. Electronically Signed: Lynda Saldaña MD at 4:41 EST , Service support ,
[2020-02-17 04:25] LABS: Anion Gap 4 (5-15); BUN 18 mg/dL (7-18); BUN/Creat Ratio 15.3 RATIO (10-20); Calcium,Total 9.8 mg/dL (8.5-10.1); Chloride 105 mmol/L (98-107); Creatinine, Serum 1.18 mg/dL (0.70-1.30); EST Glomerular Filtration Rate 62 mL/min (>60); Est Glom Filt Rate - Afr Amer 75 mL/min (>60); Glucose 138 mg/dL (74-106); Potassium 4.7 mmol/L (3.5-5.1); Sodium Level 140 mmol/L (136-145)
[2020-02-17] MEDS: Aspirin 81 MG TAB.CHEW 324 MG PO (04:57)
--- NOTE | 2020-02-17 05:05 | ED.VISSUMM ---
- ER Visit Summary Date of Service: 02/17/20 Chief Complaint: Shortness of breath History of Present Illness: The patient is a 84 M who presents with shortness of breath. Started about 5 hours ago at home. He states he is feeling short of breath. Is worse with exertion. He has had some mild sweats and chills. He denies any chest pain. His cough is been mild with no sputum. He has a history of COPD and wears 2 L of home oxygen. He denies any known exposures to anybody with coronavirus. He was given a DuoNeb and Solu-Medrol by EMS and is actually feeling a little bit better. He is a smoker and he smokes a pipe. History of coronary artery disease and had a CABG in 2002. He had a catheterization in 2017 which showed patent vessels at that time. Physical Examination: Vital signs reviewed. HEENT exam unremarkable. Heart is regular rate and rhythm without murmurs. Lungs have diffuse expiratory wheezes. Abdomen is soft and nontender. Extremities reveal no edema. Peripheral pulses are equal. Skin exam normal. Neurologic exam normal. Test Results: EKG is sinus rhythm with a rate of 110. There is a right bundle branch block with other nonspecific ST-T wave changes. This is similar to EKG performed on January 10, 2019. White blood count 15.9, glucose 138, troponin 0 0.633. Covid is negative. Chest x-ray per my and radiologist interpretation reveals chronic changes with nothing acute. Emergency Department Course and Treatment: Patient was given albuterol. I also gave him aspirin. His troponin is elevated. The last time this was checked last year it was within the normal range. His coronavirus test is negative. He has no acute EKG changes. I feel however, he should be admitted to the hospital for further evaluation. Patient was discussed with the hospitalist for admission. Treatment Plan: [] Disposition: Admit Impression: COPD exacerbation, elevated troponin This note was generated with [employer] dictation software. It may contain incorrect words, spelling, and punctuation that were not noted in review of the chart prior to signing ED Disposition - Plan for ED Patient: Referrals: Sergio Vann MD [Primary Care Provider] -
--- NOTE | 2020-02-17 05:28 | HP.PCM_ITS ---
Problem List (1) Essential hypertension Status: Chronic (2) History of coronary artery bypass surgery Status: Chronic Comment: VIVEROS to the LAD, SVG to the ramus intermedius circumflex branch, SVG to the PDA 1999 (3) COPD exacerbation Status: Acute (4) History of coronary artery stent placement Status: Chronic (5) PVCs (premature ventricular contractions) Status: Chronic (6) Atherosclerotic heart disease of [place] coronary artery without angina pectoris Status: Chronic Qualifiers: [place] vs. transplanted heart: [place] heart Qualified Code(s): I25.10 - Atherosclerotic heart disease of [place] coronary artery without angina pectoris (7) Chronic obstructive pulmonary disease Status: Chronic (8) Ischemic cardiomyopathy Status: Chronic Comment: EF 35% History of Present Illness Date of Admission: 02/17/20 Chief Complaint: SOB The patient is a 84 year old M with a significant history of COPD; hypertension; ischemic cardiomyopathy; CAD status post CABG and stents who presents emergency department with shortness of breath that started few hours before presentation. Shortness of breath has been getting progressively worse. Although at home patient has prescribed oxygen he does not typically use it. However he had to use his home oxygen before presentation. Patient has noticed an increase in his baseline wheezing. He has a chronic productive for thick sputum that has not changed. Also patient reports feeling of gas in his epigastric area. He took Millie- [place] that really did not give him relief. Enroute to the hospital patient was given Solu-Medrol and breathing treatment. Past Medical History Past Medical History (Chronic Problems): Chronic Problems (Last Reviewed 02/17/20 @ 05:[address] Dedrick Tsai MD) Essential hypertension (Chronic) History of coronary artery bypass surgery (Chronic ~2002) VIVEROS to the LAD, SVG to the ramus intermedius circumflex branch, SVG to the PDA 1999 History of coronary artery stent placement (Chronic) PVCs (premature ventricular contractions) (Chronic) Atherosclerotic heart disease of [place] coronary artery without angina pectoris (Chronic) Chronic obstructive pulmonary disease (Chronic) Ischemic cardiomyopathy (Chronic) EF 35% Medical History: Medical History (Last Reviewed 02/17/20 @ 05:[address] Dedrick Tsai MD) Essential hypertension (Chronic) I10 PVCs (premature ventricular contractions) (Chronic) I49.3 Atherosclerotic heart disease of [place] coronary artery without angina pectoris (Chronic) I25.10 Chronic obstructive pulmonary disease (Chronic) J44.9 Ischemic cardiomyopathy (Chronic) I25.5 EF 35% Allergies iodine Allergy (Severe, Verified 02/17/20 03:19) Rash amlodipine Adverse Reaction (Severe, Verified 02/17/20 03:19) SOB Home Medications: Ambulatory Orders Medication Instructions Recorded B Complex with Vitamin C 1 ea PO DAILY 09/16/16 [B-Complex Plus Vitamin C] Cyanocobalamin [Vitamin B12] 500 mcg PO DAILY@0800 09/16/16 Magnesium Oxide [Mag-Ox 400] 400 mg PO DAILY 09/16/16 Multivitamin [Multiple Vitamins] 1 ea PO DAILY 09/16/16 aspirin 81 mg tablet,delayed 81 mg PO .COMPLEX 11/18/17 release Fluticasone/Vilanterol [Breo 1 puff INHALATION DAILY 01/10/19 Ellipta 100-25 Mcg INH] Red Yeast Rice 600 mg PO DAILY 01/10/19 Sennosides/Docusate Sodium 1 ea PO BID PRN PRN #30 tab 01/11/19 [Senna-S Tablet] albuterol sulfate 90 mcg/actuation 2 puff INHALATION Q4H PRN PRN 01/18/19 aerosol inhaler Surgical History: Surgical History (Last Reviewed 02/17/20 @ 05:[address] Dedrick Tsai MD) History of coronary artery bypass surgery (Chronic) Onset Date: ~2002 Z95.1 VIVEROS to the LAD, SVG to the ramus intermedius circumflex branch, SVG to the PDA 1999 History of coronary artery stent placement (Chronic) Z95.5 History of transurethral resection of prostate Z98.890, Z90.79 Surgical History: cholecystectomy, coronary bypass surgery Smoking Status: Current every day smoker Tobacco Use: Pipe - *Family History Maternal Family History: Family History (Last Reviewed 02/17/20 @ 05:[address] Dedrick Tsai MD) Father CVA (cerebral vascular accident) Mother CAD (coronary artery disease) Hypertension Brother Hypertension Heart disease Review of Systems Constitutional: Denies: Chills, Fever, Weight Change HEENT: Denies: Head Aches, Sinus Congestion, Sinus Drainage Cardiovascular: Denies: Chest Pain, Palpitations Respiratory: Reports: Cough, Shortness of Breath, Sputum production, Wheezing Gastrointestinal: Reports: Dyspepsia. Denies: Nausea, Vomiting Genitourinary: Denies: Dysuria Musculoskeletal: Denies: Joint Pain, Joint Tenderness Skin: Denies: Rash, Wounds Neurological: Denies: Numbness, Tingling, Focal weakness Psychiatric: Denies: Anxiety, Depression, Homicidal Ideations, Suicidal Ideations Hematologic/ Lymphatic: Denies: Easy Bruising, Easy Bleeding VTE Information - Inpt Only VTE Present on Admission: No VTE Mechan Device Prophylaxis: None VTE Pharm Prophylaxis ordered?: Yes Patient Problems: Active and Suspected Problems (Last Reviewed 02/17/20 @ 05:[address] Dedrick Tsai MD) COPD exacerbation (Acute) - Physical Exam Vitals/I&O's: Vital Signs Temp Pulse Resp BP Pulse Ox 98 F 107 H 22 H 104/66 93 02/17/20 05:23 02/17/20 05:23 02/17/20 05:23 02/17/20 05:23 02/17/20 05:23 Oxygen Flow Rate (L/min) 3 Oxygen Delivery Method Nasal Cannula Weight: 64.1 kg Body Mass Index (BMI) 22.8 General: Alert, Oriented x3, Cooperative HEENT: Atraumatic, PERRLA, EOMI, Normocephalic Neck: Supple, No Nuchal Rigidity, Trachea Midline Lungs: Diminished, Tachypneic, Using Accessory Muscles, Wheezes Cardiovascular: Normal S1, Normal S2, No murmurs, Tachycardic Abdomen: Bowel Sounds Present, Soft, Non Tender Extremities: No edema, Capillary Refill Less than 3 Seconds Skin: No rashes, No breakdown Musculoskeletal: No Tenderness to Palpation of Joints or Extremities Neurological: Cranial nerves II-XII grossly intact Psych/Mental Status: Normal Affect, Appropriate Microbiology Past 72 Hours 02/17/20 03:25 Mucosa - Nose SARS-CoV-2 Antigen (Rapid) - Final Laboratory Results 02/17/20 03:18: WBC 15.9 H, RBC 4.92, Hgb 16.2, Hct 50.0, MCV 101.6 H, MCH 32.9 H, MCHC 32.4, RDW Std Deviation 47.5 H, RDW Coeff of Alis 12.6, Plt Count 264, MPV 9.8, Immature Gran % (Auto) 0.400, Neut % (Auto) 80.2 H, Lymph % (Auto) 8.5 L, [place] % (Auto) 10.2 H, Eos % (Auto) 0.4, Baso % (Auto) 0.3, Absolute Neuts (auto) 12.7 H, Absolute Lymphs (auto) 1.35, Nucleated RBC % 0, Diff Path Review July foll 02/17/20 03:18: Sodium Cancelled, Potassium Cancelled, Chloride Cancelled, Carbon Dioxide Cancelled, Anion Gap Cancelled, BUN Cancelled, Creatinine Cancelled, Estim Creat Clear Calc Cancelled, Est GFR (MDRD) Af Amer Cancelled, Est GFR (MDRD) Non-Af Cancelled, BUN/Creatinine Ratio Cancelled, Glucose Cancelled, Calcium Cancelled, Troponin I Cancelled 02/17/20 03:55: Sodium 140, Potassium 4.7, Chloride 105, Carbon Dioxide 31.0, Anion Gap 4 L, BUN 18, Creatinine 1.18, Estim Creat Clear Calc 41.30, Est GFR (MDRD) Af Amer 75, Est GFR (MDRD) Non-Af 62, BUN/Creatinine Ratio 15.3, Glucose 138 H, Calcium 9.8, Troponin I 0.633 H* Assessment/Plan All Active Problems (Last Reviewed 02/17/20 @ 05:[address] Dedrick Tsai MD) COPD exacerbation (Acute) Acute COPD exacerbation CXR independently reviewed confirms no acute cardiopulmonary process. But with hyperinflation and sternotomy wires EKG independently reviewed confirms right bundle branch block. Old records reviewed showed right bundle branch block. Scheduled DuoNeb Albuterol as needed Solu-Medrol [id number]. Because of leukocytosis will start patient on azithromycin. Trend CBC. Oxygen as needed ordered. Elevated troponin Review of emergency department lab showed troponin of 0.633. Patient report that what prompted his CABG was pain in his throat. He does not remember what prompted his stent to be placed. Will trend troponin. Likely demand ischemia from hypoxia secondary to COPD. If troponin rises consider cardiology consult Received aspirin 324 mg in the emergency department Home baby aspirin continued. Heart failure Echocardiogram on 09/10/2016: Estimated ejection fraction was 35%. Patient with multiple areas of hypokinesis. Right ventricular systolic pressure was 40 mmHg. Patient with mild valvular disease Cardiac cath on 09/17/2016: Left ventriculogram with ejection fraction of 40%. VIVEROS to LAD patent; SVG to LAD patent; SVG to RCA/RPDA patent. Patient follows up with Dr. Smith. Last visit in EMR was a phone visit with Esa Chinchilla . 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 New medication at that time was Lasix 20 mg p.o. daily as needed. Tobacco abuse Smokes a pipe Counseled. DVT prophylaxis Subcutaneous heparin ordered. Inpatient E&M: [id number] Init Hosp L3
--- NOTE | 2020-02-17 05:37 | NURSING ---
felix was called and update given
[2020-02-17] MEDS: 0.9% Saline Lock 10 ML Syringe IV ×2 (06:50→21:48)
[2020-02-17] MEDS: Ipratropium/Albuterol Sulfate 3 ML AMPUL.NEB INHALATION ×4 (07:04→20:36)
[2020-02-17] MEDS: Cyanocobalamin 500 MCG Tablet PO (09:25)
[2020-02-17] MEDS: Multivitamins,Therapeutic Tablet 1 TABLET PO (09:25)
[2020-02-17] MEDS: Aspirin E.C. 81 MG Tablet PO (09:26)
--- NOTE | 2020-02-17 10:49 | ECHOD_ITS ---
Reason For Study: CAD/ASHD Procedure This was a 2D Doppler, Color Flow transthoracic echocardiogram. Exam performed portable in patient room. Left Ventricle Normal left ventricle. Left ventricular systolic function is normal. The estimated ejection fraction is 55 %. Stage 1 diastolic dysfunction. No regional wall motion abnormalities noted. Right Ventricle Normal RV size. Normal systolic function. Atria Normal left atrium. Normal right atrium. Mitral Valve Bileaflet diffuse mitral valve thickening. Mild (1+) eccentric mitral valve insufficiency. Tricuspid Valve Normal tricuspid valve. Aortic Valve Trisinus/trileaflet aortic valve. Moderate focal aortic valve thickening. Peak aortic valve gradient 20 mmHg. Mean aortic valve gradient 10 mmHg. Mild aortic stenosis. Mild (1+) aortic valve insufficiency. Pulmonic Valve Normal pulmonic valve. Great Vessels Normal aortic root. The pulmonary artery is normal size. Normal inferior vena cava. Pericardium/Pleural No pericardial effusion. MMode/2D Measurements & Calculations LVIDd: 5.2 cm IVSd: 1.1 cm LVOT diam: 2.1 cm LVIDs: 3.6 cm LVPWd: 1.0 cm LVOT area: 3.4 cm2 RVDd: 3.4 cm FS: 31.0 % Ao root diam: 2.8 cm LAV(MOD-bp): 62.1 ml LA A4 area: 19.4 cm2 LAV(MOD-bp) Indexed: 37.0 ml/m2 LAV(MOD-sp2): 61.7 ml LAV(MOD-sp4): 57.1 ml LA dimension(2D): 3.9 cm RA A4 area: 13.9 cm2 Time Measurements MV dec time: 0.16 sec Doppler Measurements & Calculations MV E max hair: 100.2 cm/sec Lat Peak E' Hiar: 4.3 cm/sec Med Peak E' Hair: 5.9 cm/sec MV A max hair: 123.6 cm/sec E/E' lat: 23.2 E/E' med: 17.1 MV E/A: 0.81 Ao V2 max: 224.7 cm/sec LV V1 max: 86.1 cm/sec SV(LVOT): 58.8 ml Ao max P.2 mmHg LV V1 max P.0 mmHg Ao V2 mean: 155.1 cm/sec LV V1 mean P.6 mmHg Ao mean P.4 mmHg LV V1 mean: 59.7 cm/sec Ao V2 VTI: 47.0 cm LV V1 VTI: 17.3 cm NESTOR(I,D): 1.2 cm2 NESTOR(V,D): 1.3 cm2 PA V2 max: 97.4 cm/sec TR max hair: 315.5 cm/sec TR max P.6 mmHg Interpretation Summary Normal left ventricle. Left ventricular systolic function is normal. The estimated ejection fraction is 55 %. Stage 1 diastolic dysfunction. Mild aortic stenosis. Mild (1+) aortic valve insufficiency. Mild (1+) eccentric mitral valve insufficiency. Ordering Physician: Matthew Pearson Referring Physician: Sergio Vann Performed By: Radha Beavers RDCS, RVT
--- NOTE | 2020-02-17 10:50 | EKG12_ITS ---
Test Reason : ROUTINE Blood Pressure : / mmHG Vent. Rate : 091 BPM Atrial Rate : 091 BPM P-R Int : 158 ms QRS Dur : 150 ms QT Int : 472 ms P-R-T Axes : 071 -86 254 degrees QTc Int : 580 ms Normal sinus rhythm with sinus arrhythmia Right bundle branch block Possible Left anterior fascicular block Bifascicular block Marked T-wave abnormality, consider inferolateral ischemia Abnormal ECG Confirmed by BERE GONZALEZ, NIGEL ([id number]), assistant production editor SANDRA THORPE ([id number]) on 02/23/2020 9:49:12 AM Referred By: Confirmed By:NIGEL BLACKBURN MD
--- NOTE | 2020-02-17 11:06 | CON.PCM_ITS ---
Problem List (1) Non-STEMI (non-ST elevated myocardial infarction) Status: Acute Reason for Consult Date of Consultation: 02/17/20 Reason for Consultation: Non-STEMI History of Present Illness: The patient is an 84 year old M developed sudden onset of shortness of breath watching television yesterday and denied any chest pain. He was admitted for observation and found to have elevated troponin. EKG on admission shows sinus rhythm with right bundle branch block and left axis deviation unchanged from. His EKG. Patient cardiac history dates back to 1999 at that time patient had 3 grafts bypass namely: VIVEROS to the left anterior descending, venous graft to the ramus and venous graft to the distal right. Patient had stenting prior to the bypass. Denies any history of myocardial infarct or CVA. 3 years ago patient had repeat cardiac catheterization and showed patent grafts. Ejection fraction was between 35% to 40%. Patient is known to have hypertension and hyperlipidemia. Patient has had severe COPD on home oxygen. 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 In a good day, patient cannot walk that well because of shortness of breath. He has been sleeping on 1 pillow. He does have iodine allergy [] Past Medical History Allergies/Adverse Reactions: Allergies iodine Allergy (Severe, Verified 02/17/20 03:19) Rash amlodipine Adverse Reaction (Severe, Verified 02/17/20 03:19) SOB Home Medications: Ambulatory Orders Medication Instructions Recorded B Complex with Vitamin C 1 ea PO DAILY 09/16/16 [B-Complex Plus Vitamin C] Cyanocobalamin [Vitamin B12] 500 mcg PO DAILY@0800 09/16/16 Magnesium Oxide [Mag-Ox 400] 400 mg PO DAILY 09/16/16 Multivitamin [Multiple Vitamins] 1 ea PO DAILY 09/16/16 aspirin 81 mg tablet,delayed 81 mg PO .COMPLEX 11/18/17 release Fluticasone/Vilanterol [Breo 1 puff INHALATION DAILY 01/10/19 Ellipta 100-25 Mcg INH] Red Yeast Rice 600 mg PO DAILY 01/10/19 Sennosides/Docusate Sodium 1 ea PO BID PRN PRN #30 tab 01/11/19 [Senna-S Tablet] albuterol sulfate 90 mcg/actuation 2 puff INHALATION Q4H PRN PRN 01/18/19 aerosol inhaler Past Medical History (Chronic Problems): Chronic Problems (Last Reviewed 02/17/20 @ 05:[address] Dedrick Tsai MD) Essential hypertension (Chronic) History of coronary artery bypass surgery (Chronic ~2002) VIVEROS to the LAD, SVG to the ramus intermedius circumflex branch, SVG to the PDA 1999 History of coronary artery stent placement (Chronic) PVCs (premature ventricular contractions) (Chronic) Atherosclerotic heart disease of [place] coronary artery without angina pectoris (Chronic) Chronic obstructive pulmonary disease (Chronic) Ischemic cardiomyopathy (Chronic) EF 35% Surgical History: cholecystectomy, coronary bypass surgery - *Family History Maternal Family History: Family History (Last Reviewed 02/17/20 @ 05:[address] Dedrick Tsai MD) Father CVA (cerebral vascular accident) Mother CAD (coronary artery disease) Hypertension Brother Hypertension Heart disease Smoking Status: Current every day smoker Tobacco Use: Pipe Review of Systems - Review of Systems General: Reports: Fatigue HEENT: Reports: - - Hard of hearing Cardiovascular: Reports: Shortness of Breath at Rest. Denies: Chest Discomfort Respiratory: Reports: Wheezing Gastrointestinal: Denies: Hematemesis, Hematochezia, Melena Genitourinary: Reports: - - History of TURP Objective: Vital Signs Temp Pulse Resp BP Pulse Ox 98.7 F 86 18 93/55 L 96 02/17/20 09:19 02/17/20 11:02 02/17/20 11:02 02/17/20 09:19 02/17/20 09:19 Oxygen Flow Rate (L/min) 3 Oxygen Delivery Method Room Air Weight: 133 lb 9.602 oz Body Mass Index (BMI) 21.5 General: Awake, Alert, Oriented x 3, Cooperative, No Acute Distress HEENT: - - Hard of hearing Neck: Supple Lungs: Diminished Michel Bases, Expiratory Wheezes-Michel Cardiovascular: Regular Rhythm, Normal S1, Normal S2, No Murmurs Vascular: No Carotid Bruits, Decreased R Femoral Pulse, Decreased L Femoral Pulse, Normal Radial Pulses, Decreased R Dorsalis Pedal Pulse, Decreased L Dorsalis Pedal Pulse, Decreased R Posterior Tibial Pulse, Decreased L Posterior Tibial Pulse Abdomen: Bowel Sounds Present, Soft, Non Tender, No HSM, No Organomegaly Extremities: No edema Neurological: No Focal Motor or Sensory Deficit Psych/Mental Status: Appropriate, Normal Affect 02/17/20 03:18: WBC 15.9 H, RBC 4.92, Hgb 16.2, Hct 50.0, MCV 101.6 H, MCH 32.9 H, MCHC 32.4, Plt Count 264, MPV 9.8, Immature Gran % (Auto) 0.400, Neut % (A uto) 80.2 H, Lymph % (Auto) 8.5 L, [place] % (Auto) 10.2 H, Eos % (Auto) 0.4, Baso % (Auto) 0.3, Absolute Neuts (auto) 12.7 H, Nucleated RBC % 0 02/17/20 03:18: Sodium Cancelled, Potassium Cancelled, Chloride Cancelled, Carbon Dioxide Cancelled, Anion Gap Cancelled, BUN Cancelled, Creatinine Cancelled, Est GFR (MDRD) Af Amer Cancelled, Est GFR (MDRD) Non-Af Cancelled, BUN/Creatinine Ratio Cancelled, Glucose Cancelled, Calcium Cancelled, Troponin I Cancelled 02/17/20 03:55: Sodium 140, Potassium 4.7, Chloride 105, Carbon Dioxide 31.0, Anion Gap 4 L, BUN 18, Creatinine 1.18, Est GFR (MDRD) Af Amer 75, Est GFR (MDRD) Non-Af 62, BUN/Creatinine Ratio 15.3, Glucose 138 H, Calcium 9.8, Troponin I 0.633 H* 02/17/20 06:49: Troponin I 1.180 H* 02/17/20 09:45: Troponin I 1.510 H* Rhythm: EKG: ECHO: Stress Test: Cardiac Cath: PCI: CT Surgery: Holter monitor: EPS: PPM: CXR: Chest CT Scan: Assessment/Plan #1 non-STEMI with symptoms of shortness of breath now improved after admission, the shortness of breath is anginal equivalent. First EKG showed chronic right bundle branch block and left axis deviation with nonspecific ST-T wave changes unchanged from previous EKG. However second EKG showed deep T wave inversion in the anterior and inferior leads. We will proceed with cardiac catheterization. The risk and benefit of the procedure have been explained to the patient. He has given the consent. At the meantime patient will continue aspirin, low-dose highly selective beta-santiago, statin, Plavix. Patient is not a candidate for redo CABG because of his severe end-stage COPD #2 iodine allergy, patient would undergo cardiac catheterization tomorrow. Prednisone, Pepcid and Benadryl will be given #3 severe COPD, mostly from chemical exposure during his lifetime #4 history of hypertension and hyperlipidemia
--- NOTE | 2020-02-17 11:14 | NURSING ---
Notified MD of trop of 1.510 and EKG changes. Awaiting orders
[2020-02-17 11:22] LABS: Cholesterol 171 mg/dL (200); High Density Lipoprotein 78 mg/dL; Triglycerides 60 mg/dL; Very Low Density Lipoprotein 12 mg/dL (5-40)
[2020-02-17] MEDS: Magnesium Chloride 64 MG Delay Rel.Tablet 128 MG PO (12:49)
--- NOTE | 2020-02-17 13:39 | PCM.PN.HOSP ---
Patient Problems: Active and Suspected Problems (Last Reviewed 02/17/20 @ 05:[address] Dedrick Tsai MD) Non-STEMI (non-ST elevated myocardial infarction) (Acute) COPD exacerbation (Acute) Subjective: Patient seen and examined. He was admitted with a complaint of shortness of breath. He was initially being managed for acute COPD exacerbation. Initial troponin of 0.16 and with repeat went up to 1.5. He is therefore not be managed for non-STEMI. Cardiology on board. Patient has no complaints this morning. He feels well and shortness of breath has improved. He denies any chest pain, palpitations, dizziness, nausea or vomiting. Review of symptoms otherwise negative. Vitals/I&O's: Vital Signs Temp Pulse Resp BP Pulse Ox 98.7 F 86 18 93/55 L 96 02/17/20 09:19 02/17/20 11:02 02/17/20 11:02 02/17/20 09:19 02/17/20 09:19 Oxygen Flow Rate (L/min) 3 Oxygen Delivery Method Room Air Weight: 133 lb 9.602 oz Body Mass Index (BMI) 21.5 Intake and Output for Last 24 Hours 02/15/20 02/16/20 02/17/20 23:59 23:59 23:59 Intake Total 255 / 255 Balance 255 / 255 General: Alert, Oriented x3, Cooperative, No apparent distress HEENT: Atraumatic, PERRLA, EOMI, Normocephalic Oral: Dry Mucosa Neck: Supple, No JVD, Negative Carotid Bruits Lungs: Clear to auscultation, Normal air movement, No rhonchi, No wheeze, No rales, - - on 3L of oxygen by nasal canula Cardiovascular: Regular rate, Regular Rhythm, Normal S1, Normal S2, No murmurs Abdomen: Bowel Sounds Present, Soft, Non Tender, Non-Distended, No Hepato-splenomegaly Extremities: No clubbing, No cyanosis, No edema, Capillary Refill Less than 3 Seconds Skin: No rashes, No breakdown Musculoskeletal: No Tenderness to Palpation of Joints or Extremities Lymphatic: No Cervical, Supraclavicular, or Inguinal Adenopathy Neurological: Cranial nerves II-XII grossly intact, Neuro grossly intact, Motor Exam 5/5 strength throughout Psych/Mental Status: Normal Affect, Appropriate, Alert and oriented to time, place, person, mood and affect Microbiology Past 72 Hours 02/17/20 03:25 Mucosa - Nose SARS-CoV-2 Antigen (Rapid) - Final Laboratory Results 02/17/20 03:18: WBC 15.9 H, RBC 4.92, Hgb 16.2, Hct 50.0, MCV 101.6 H, MCH 32.9 H, MCHC 32.4, RDW Std Deviation 47.5 H, RDW Coeff of Alis 12.6, Plt Count 264, MPV 9.8, Immature Gran % (Auto) 0.400, Neut % (Auto) 80.2 H, Lymph % (Auto) 8.5 L, [place] % (Auto) 10.2 H, Eos % (Auto) 0.4, Baso % (Auto) 0.3, Absolute Neuts (auto) 12.7 H, Absolute Lymphs (auto) 1.35, Nucleated RBC % 0, Diff Path Review July02/17/20 03:18: Sodium Cancelled, Potassium Cancelled, Chloride Cancelled, Carbon Dioxide Cancelled, Anion Gap Cancelled, BUN Cancelled, Creatinine Cancelled, Estim Creat Clear Calc Cancelled, Est GFR (MDRD) Af Amer Cancelled, Est GFR (MDRD) Non-Af Cancelled, BUN/Creatinine Ratio Cancelled, Glucose Cancelled, Calcium Cancelled, Troponin I Cancelled 02/17/20 03:18: B-Natriuretic Peptide Pending 02/17/20 03:55: Sodium 140, Potassium 4.7, Chloride 105, Carbon Dioxide 31.0, Anion Gap 4 L, BUN 18, Creatinine 1.18, Estim Creat Clear Calc 41.30, Est GFR (MDRD) Af Amer 75, Est GFR (MDRD) Non-Af 62, BUN/Creatinine Ratio 15.3, Glucose 138 H, Calcium 9.8, Troponin I 0.633 H* 02/17/20 03:55: Triglycerides 60, Cholesterol 171, LDL Cholesterol 81, VLDL Cholesterol 12, HDL Cholesterol 78 02/17/20 06:49: Troponin I 1.180 H* 02/17/20 09:45: Troponin I 1.510 H* Diagnostic Data Chest X-Ray 02/17/20 03:40 IMPRESSION: No radiographic evidence of acute cardiopulmonary disease. Electronically Signed: Lynda Saldaña MD at 4:41 EST , Service support , Current Medications Acetaminophen (Acetaminophen 325 Mg Tablet) 650 mg PO Q6H PRN PRN PRN Reason: Pain Score 1-10/Temp > 100.7 F Albuterol Sulfate (Albuterol 2.5 Mg/3 Ml Vial.Neb.) 2.5 mg INHALATION Q2H PRN PRN PRN Reason: SOB/Wheezing Albuterol/Ipratropium (Ipratropium/Albuterol Sulfate 3 Ml Ampul.Neb) 3 ml INHALATION Q4HWA.RT [facility] Last Admin: 02/17/20 11:02 Dose: 3 ml Documented by: Aspirin (Aspirin E.C. 81 Mg Tablet) 81 mg PO Q72H [facility] Last Admin: 02/17/20 09:26 Dose: 81 mg Documented by: Atorvastatin Calcium (Atorvastatin Calcium 40 Mg Tablet) 40 mg PO QHS [facility] Cyanocobalamin (Cyanocobalamin 500 Mcg Tablet) 500 mcg PO DAILY@0800 [facility] Last Admin: 02/17/20 09:25 Dose: 500 mcg Documented by: Enoxaparin Sodium (Enoxaparin 60 Mg/0.6 Ml Syringe) 60 mg SC Q12@0600,1800 [facility] Stop: 02/18/20 00:01 Famotidine (Famotidine 20 Mg Tablet) 20 mg PO BID [facility] Azithromycin 500 mg/ Dextrose 255 mls @ 250 mls/hr IV Q24@2200 [facility] Stop: 02/18/20 23:02 Last Infusion: 02/17/20 12:51 Dose: Infused Documented by: Sodium Chloride () 1,000 mls @ 0 mls/hr IV .Q0M [facility] Magnesium Chloride (Magnesium Chloride 64 Mg Delay Rel.Tablet) 128 mg PO DAILY [facility] Last Admin: 02/17/20 12:49 Dose: 128 mg Documented by: Melatonin (Melatonin 3 Mg Tablet) 3 mg PO QHS PRN PRN PRN Reason: INSOMNIA Methylprednisolone (Methylprednisolone 40 Mg/Ml Vial) 40 mg IV Q8 [facility] Last Admin: 02/17/20 06:50 Dose: 40 mg Documented by: Multivitamins (Multivitamins,Therapeutic Tablet) [facility] Last Admin: 02/17/20 09:25 Dose: 1 tablet Documented by: Nebivolol (Nebivolol Hcl 5 Mg Tablet) 5 mg PO DAILY [facility] Last Admin: 02/17/20 12:49 Dose: 5 mg Documented by: Ondansetron HCl (Ondansetron 4 Mg/2 Ml Vial) 4 mg IV Q8H PRN PRN PRN Reason: NAUSEA/VOMITING Senna/Docusate Sodium (Senna/Docusate Sodium 1 Tablet) 1 tablet PO BID PRN PRN PRN Reason: constipation Sodium Chloride (0.9% Saline Lock 10 Ml Syringe) 10 - 40 ml IV UD PRN PRN Reason: SALINE FLUSH Last Admin: 02/17/20 06:50 Dose: 10 ml Documented by: STROKE Vital Signs/Narrative: Vital Signs Pulse Resp 02/17/20 11:02 86 18 Medical Necessity - Tobacco Use Smoking Status: Current every day smoker Tobacco Use: Pipe Assessment/Plan All Active Problems (Last Reviewed 02/17/20 @ 05:[address] Dedrick Tsai MD) Non-STEMI (non-ST elevated myocardial infarction) (Acute) COPD exacerbation (Acute) # Nonstemi initial troponin was 0.6, and peaked at 1.5 cardiology on board on aspirin and high intensity statin on therapeutic lovenox per cardiology, for cardiac cath tomorrow #HFrEF 2D echo done in 2017 showed EF of 35% with RVSP of 40 mmHg. Not in exacerbation. Continue p.o. Lasix 20 mg daily. order 2D echo. on nebivolol #Acute COPD exacerbation this is of lower probability as he is not wheezing and shortness of breath is likely more cardiac in nature. Continue IV Solu-Medrol. Breathing treatments with bronchodilators. Had leukocytosis of 15 so patient started on azithromycin on admission. Will continue. #Chronic hypoxic respiratory failure due to COPD Wears oxygen at home. He cannot tell how many liters he wears at home and states he does not use it all the time he only uses as needed. Titrate oxygen to maintain saturation above 90%. DVT prophylaxis: not indicated; on therapeutic lovenox Inpatient E&M: [id number] [facility] L3
[2020-02-17] MEDS: Clopidogrel Bisulfate 300 MG Tablet PO (15:12)
[2020-02-17] MEDS: Enoxaparin 60 MG/0.6 ML Syringe SC (15:13)
[2020-02-17] MEDS: Atorvastatin Calcium 40 MG Tablet PO (21:25)
[2020-02-17] MEDS: Famotidine 20 MG Tablet PO (21:25)
[2020-02-18] VITALS (21 sets, daily range): BP systolic 107–139; BP diastolic 42–96; PULSE 55–90; RESP 16–20; TEMP 36.3–37.1; O2SAT 93–100
--- NOTE | 2020-02-18 05:55 | EKG12_ITS ---
Test Reason : AM EKG Blood Pressure : / mmHG Vent. Rate : 066 BPM Atrial Rate : 066 BPM P-R Int : 168 ms QRS Dur : 160 ms QT Int : 576 ms P-R-T Axes : 053 -52 242 degrees QTc Int : 603 ms Normal sinus rhythm with sinus arrhythmia Left axis deviation Right bundle branch block Marked T-wave abnormality, consider inferolateral ischemia Abnormal ECG Confirmed by MARGARETTE GONZALEZ, RENATA ([id number]), photography editor SANDRA THORPE ([id number]) on 02/22/2020 9:34:38 AM Referred By: DR GUTIERREZ Confirmed By:RENATA PFEIFFER MD
[2020-02-18] MEDS: Aspirin E.C. 81 MG Tablet PO (06:20)
[2020-02-18 06:42] LABS: Absolute Lymphocyte Count 0.74 X10^3/uL (0.83-4.51); Absolute Neutrophil Count 16.4 X10^3/uL (2.0-7.7); Basophil# 0.02 X10^3/uL; Basophil% 0.1 % (0-1); Hematocrit 41.5 % (40-54); Hemoglobin 13.6 g/dL (13.0-16.5); Lymphocyte # 0.74 X10^3/ul (4.0); Lymphocyte % 4.1 % (19-41); Mean Corp Hgb Conc 32.8 g/dL (32-36); Mean Corpuscular Hgb 32.9 pg (27.0-32.0); Mean Corpuscular Volume 100.2 fL (80-94); Mean Platelet Vol. 9.9 fl (6.2-12.0); Monocyte# 0.77 X10^3/uL; Monocyte% 4.3 % (0-10); NRBC Flagged by Analyzer 0 % (0-5); Neutrophil # 16.38 X10^3/uL (2.7-7.7); Neutrophil % 90.9 % (47-70); Platelet Count 233 K/mm3 (150-450); RBC Distribution Width CV 12.2 % (11.6-14.6); RBC Distribution Width SD 45.3 fl (35.1-43.9); Red Blood Count 4.14 M/mm3 (4.6-6.2)
[2020-02-18] MEDS: Ipratropium/Albuterol Sulfate 3 ML AMPUL.NEB INHALATION ×3 (06:57→19:55)
[2020-02-18 07:29] LABS: Anion Gap 6 (5-15); BUN 52 mg/dL (7-18); BUN/Creat Ratio 27.8 RATIO (10-20); Calcium,Total 8.6 mg/dL (8.5-10.1); Chloride 103 mmol/L (98-107); Creatinine, Serum 1.87 mg/dL (0.70-1.30); EST Glomerular Filtration Rate 37 mL/min (>60); Est Glom Filt Rate - Afr Amer 44 mL/min (>60); Estimated Creatinine Clearance 24.75 ml/min; Glucose 134 mg/dL (74-106); Potassium 4.4 mmol/L (3.5-5.1); Sodium Level 138 mmol/L (136-145)
--- NOTE | 2020-02-18 07:45 | NURSING ---
Pt left for [employer] via [employer].
--- NOTE | 2020-02-18 07:50 | PCM.PN.HOSP ---
Patient Problems: Active and Suspected Problems (Last Reviewed 02/17/20 @ 05:[address] Dedrick Tsai MD) Non-STEMI (non-ST elevated myocardial infarction) (Acute) COPD exacerbation (Acute) Subjective: Patient seen and examined. He has no complaints today. He is due for cardiac cath today. Vitals/I&O's: Vital Signs Temp Pulse Resp BP Pulse Ox 97.5 F L 69 17 110/60 94 02/18/20 06:16 02/18/20 06:59 02/18/20 06:59 02/18/20 06:16 02/18/20 06:59 Oxygen Flow Rate (L/min) 2 Oxygen Delivery Method Nasal Cannula Weight: 133 lb 9.602 oz Body Mass Index (BMI) 21.5 Intake and Output for Last 24 Hours 02/16/20 02/17/20 02/18/20 23:59 23:59 23:59 Intake Total 1210 / 1210 0 / 0 Output Total 575 / 575 Balance 635 / 635 0 / 0 General: Alert, Oriented x3, Cooperative, No apparent distress HEENT: Atraumatic, PERRLA, EOMI, Normocephalic Oral: Dry Mucosa Neck: Supple, No JVD, Negative Carotid Bruits Lungs: Clear to auscultation, Normal air movement, No rhonchi, No wheeze, No rales, - - on 2L of oxygen by nasal canula Cardiovascular: Regular rate, Regular Rhythm, Normal S1, Normal S2, No murmurs Abdomen: Bowel Sounds Present, Soft, Non Tender, Non-Distended, No Hepato-splenomegaly Extremities: No clubbing, No cyanosis, No edema, Capillary Refill Less than 3 Seconds Skin: No rashes, No breakdown Musculoskeletal: No Tenderness to Palpation of Joints or Extremities Lymphatic: No Cervical, Supraclavicular, or Inguinal Adenopathy Neurological: Cranial nerves II-XII grossly intact, Neuro grossly intact, Motor Exam 5/5 strength throughout Psych/Mental Status: Normal Affect, Appropriate, Alert and oriented to time, place, person, mood and affect Microbiology Past 72 Hours 02/17/20 03:25 Mucosa - Nose SARS-CoV-2 Antigen (Rapid) - Final Laboratory Results 02/17/20 03:18: B-Natriuretic Peptide Pending 02/17/20 03:55: Triglycerides 60, Cholesterol 171, LDL Cholesterol 81, VLDL Cholesterol 12, HDL Cholesterol 78 02/17/20 09:45: Troponin I 1.510 H* 02/18/20 06:00: WBC 18.0 H, RBC 4.14 L, Hgb 13.6, Hct 41.5, MCV 100.2 H, MCH 32.9 H, MCHC 32.8, RDW Std Deviation 45.3 H, RDW Coeff of Alis 12.2, Plt Count 233, MPV 9.9, Immature Gran % (Auto) 0.600, Neut % (Auto) 90.9 H, Lymph % (Auto) 4.1 L, [place] % (Auto) 4.3, Eos % (Auto) 0.0, Baso % (Auto) 0.1, Absolute Neuts (auto) 16.4 H, Absolute Lymphs (auto) 0.74 L, Nucleated RBC % 0 02/18/20 06:00: Sodium 138, Potassium 4.4, Chloride 103, Carbon Dioxide 29.0, Anion Gap 6, BUN 52 H, Creatinine 1.87 H, Estim Creat Clear Calc 24.75, Est GFR (MDRD) Af Amer 44 L, Est GFR (MDRD) Non-Af 37 L, BUN/Creatinine Ratio 27.8 H, Glucose 134 H, Calcium 8.6 Diagnostic Data Chest X-Ray 02/17/20 03:40 IMPRESSION: No radiographic evidence of acute cardiopulmonary disease. Electronically Signed: Lynda Saldaña MD at 4:41 EST , Service support , Current Medications Acetaminophen (Acetaminophen 325 Mg Tablet) 650 mg PO Q6H PRN PRN PRN Reason: Pain Score 1-10/Temp > 100.7 F Albuterol Sulfate (Albuterol 2.5 Mg/3 Ml Vial.Neb.) 2.5 mg INHALATION Q2H PRN PRN PRN Reason: SOB/Wheezing Albuterol/Ipratropium (Ipratropium/Albuterol Sulfate 3 Ml Ampul.Neb) 3 ml INHALATION Q4HWA.RT [facility] Last Admin: 02/18/20 06:57 Dose: 3 ml Documented by: Aspirin (Aspirin E.C. 81 Mg Tablet) 81 mg PO Q72H [facility] Last Admin: 02/18/20 06:20 Dose: 81 mg Documented by: Atorvastatin Calcium (Atorvastatin Calcium 40 Mg Tablet) 40 mg PO QHS [facility] Last Admin: 02/17/20 21:25 Dose: 40 mg Documented by: Cyanocobalamin (Cyanocobalamin 500 Mcg Tablet) 500 mcg PO DAILY@0800 [facility] Last Admin: 02/17/20 09:25 Dose: 500 mcg Documented by: Famotidine (Famotidine 20 Mg Tablet) 20 mg PO BID [facility] Last Admin: 02/17/20 21:25 Dose: 20 mg Documented by: Azithromycin 500 mg/ Dextrose 255 mls @ 250 mls/hr IV Q24@2200 [facility] Stop: 02/18/20 23:02 Last Infusion: 02/17/20 22:28 Dose: Infused Documented by: Sodium Chloride () 1,000 mls @ 0 mls/hr IV .Q0M [facility] Magnesium Chloride (Magnesium Chloride 64 Mg Delay Rel.Tablet) 128 mg PO DAILY [facility] Last Admin: 02/17/20 12:49 Dose: 128 mg Documented by: Melatonin (Melatonin 3 Mg Tablet) 3 mg PO QHS PRN PRN PRN Reason: INSOMNIA Methylprednisolone (Methylprednisolone 40 Mg/Ml Vial) 40 mg IV Q8 [facility] Last Admin: 02/18/20 06:20 Dose: 40 mg Documented by: Multivitamins (Multivitamins,Therapeutic Tablet) [facility] Last Admin: 02/17/20 09:25 Dose: 1 tablet Documented by: Nebivolol (Nebivolol Hcl 5 Mg Tablet) 5 mg PO DAILY [facility] Last Admin: 02/18/20 06:20 Dose: 5 mg Documented by: Ondansetron HCl (Ondansetron 4 Mg/2 Ml Vial) 4 mg IV Q8H PRN PRN PRN Reason: NAUSEA/VOMITING Senna/Docusate Sodium (Senna/Docusate Sodium 1 Tablet) 1 tablet PO BID PRN PRN PRN Reason: constipation Sodium Chloride (0.9% Saline Lock 10 Ml Syringe) 10 - 40 ml IV UD PRN PRN Reason: SALINE FLUSH Last Admin: 02/17/20 21:48 Dose: 10 ml Documented by: STROKE Vital Signs/Narrative: Vital Signs Temp Pulse Resp BP Pulse Ox 02/18/20 06:59 69 17 94 02/18/20 06:16 97.5 F L 76 17 110/60 95 02/18/20 04:14 97.8 F 64 16 107/42 L 94 Medical Necessity - Tobacco Use Smoking Status: Current every day smoker Tobacco Use: Pipe Assessment/Plan All Active Problems (Last Reviewed 02/17/20 @ 05:[address] Dedrick Tsai MD) Non-STEMI (non-ST elevated myocardial infarction) (Acute) COPD exacerbation (Acute) # Nonstemi initial troponin was 0.6, and peaked at 1.5 cardiology on board on aspirin and high intensity statin on therapeutic lovenox per cardiology, for cardiac cath today #HFrEF 2D echo done in 2017 showed EF of 35% with RVSP of 40 mmHg. Not in exacerbation. Continue p.o. Lasix 20 mg daily. order 2D echo. on nebivolol #GERALD: Cr today is up to 1.87. Will hydrate gently with IVF and trend CR. IF Cr worsens, to get urine electrolytes and renal USG #Acute COPD exacerbation Continue IV Solu-Medrol. Breathing treatments with bronchodilators. on IV azithromycin #Chronic hypoxic respiratory failure due to COPD Wears oxygen at home. He cannot tell how many liters he wears at home and states he does not use it all the time he only uses as needed. Titrate oxygen to maintain saturation above 90%. DVT prophylaxis: not indicated; on therapeutic lovenox Inpatient E&M: 94796 [facility] L3
[2020-02-18] MEDS: DiphenhydrAMINE 50 MG/ML Syringe IV (08:06)
[2020-02-18] MEDS: Famotidine 20mg IV Push Syringe Q12 300 MG IV (08:55)
--- NOTE | 2020-02-18 09:51 | PCI.CARDCATH ---
PCI Cardiac Cath Report PCI Report: Procedure: Left heart cardiac catheterization, coronary arteriography, graft study, stenting of the venous graft to the ramus Clinical history: 84-year-old white male with non-STEMI and functional class IV angina Indication: Non-STEMI with functional class IV angina Heart failure: Chronic systolic dysfunction Stress/imaging: None CAD presentation: Non-STEMI with functional class IV angina Summary: #1 severe proximal stenoses of the venous graft to the ramus, pre PCI stenoses with 75%, post PCI stenosis was 0%, VIVIAN-3 flow was maintained. 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 He will be carefully rehydrated because of deterioration of renal function after diuretic. Renal function will be monitored carefully Procedure Details The risks, benefits, complications, treatment options, and expected outcomes were discussed with the patient. The patient and/or family concurred with the proposed plan, giving informed consent. Patient was brought to the laborer tree tapping after IV hydration . Patient was further sedated with IV conscious sedation. Subject was prepped and draped in the usual manner. Using the modified Seldinger access technique, a 6 [place] sheath was placed in the right femoral approach. Standard diagnostic catheters were used. Exchanges were performed over J-wire. At the end of the procedures, all catheters and sheaths were removed and bleeding was stopped with manual pressure Findings: Left ventriculogram: Not performed Moderate Sedation: Because of severe COPD, no sedation was given Hemodynamics: 130/70, 80/min Coronary Anatomy: Right dominant Left Main : Calcified with no significant obstructive disease LAD: Calcified proximally and at its midportion. Multiple area of stenosis compromising lumen between 75% to 80%. There was a patent VIVEROS graft to the mid left anterior descending. Both of them were normal Diagonals : Diagonal branches were normal in caliber and free of significant disease. The large ramus was supplied by a venous graft. It had a 75% proximal tubular stenosis. Circumflex : The left circumflex was occluded proximally. Major Obtuse Marginals : Small and diffusely diseased Right Coronary Artery: Right coronary artery was a large-caliber vessel. It was occluded at its ostium. There was a large normal venous graft to the posterior descending. The posterior descending was normal in caliber and free of significant disease. There was a large posterolateral branch. It supplied 3 branches. The first branch was large in caliber and narrowed 50% proximally over a short segment. The other 2 branches were large in caliber and free of significant disease Graft study: As stated above Intervention Lesion: Stenting of the venous graft to the ramus Guiding Catheter used 6 [place] left bypass Guide Wire used: Run-through and Spider FX filter wire, balloon used: None stents Used: Synergy: [id number] Procedure in detail: Run-through had no difficulty passing down the distal ramus. The spider filter wire was then deployed over the run-through wire with no difficulty. The stent was then deployed at 14 toñito. Residual stenoses was 0%. VIVIAN-3 flow was maintained. Estimated Blood Loss: Minimal} Complications: None Disposition condition: Stable
--- NOTE | 2020-02-18 10:00 | EKG12_ITS ---
Test Reason : MORNING EKG Blood Pressure : / mmHG Vent. Rate : 074 BPM Atrial Rate : 074 BPM P-R Int : 140 ms QRS Dur : 158 ms QT Int : 522 ms P-R-T Axes : 041 -56 248 degrees QTc Int : 579 ms Sinus rhythm with occasional Premature ventricular complexes and Premature atrial complexes Right bundle branch block Possible Left anterior fascicular block Bifascicular block Marked T-wave abnormality, consider inferolateral ischemia Abnormal ECG Confirmed by BERE GONZALEZ, NIGEL ([id number]), senior technical editor SANDRA THORPE ([id number]) on 02/23/2020 10:09:51 AM Referred By: MELLY Confirmed By:NIGEL BLACKBURN MD
--- NOTE | 2020-02-18 10:58 | CASEMGMT ---
Insurance review for hospitals In-network with [employer] PPO Insurance if transfer is recommended is as follows: [facility], [place], [facility], [facility], [facility], [facility]), and . Andre DENNISN RN CM
[2020-02-18 12:23] LABS: BNP,B-Type NATRIURETIC PEPTIDE 166.3 pg/mL (0-100)
[2020-02-18 13:26] LABS: ACT Activated Clotting Time 169 sec (74-137)
[2020-02-18 13:26] LABS: ACT Activated Clotting Time 263 sec (74-137)
[2020-02-18 13:26] LABS: ACT Activated Clotting Time 191 sec (74-137)
[2020-02-18 13:26] LABS: ACT Activated Clotting Time 241 sec (74-137)
[2020-02-18 13:26] LABS: ACT Activated Clotting Time 219 sec (74-137)
[2020-02-18 14:28] LABS: Pathologist Review Reviewed
--- NOTE | 2020-02-18 15:44 | CASEMGMT ---
SW reviewed chart, met w/pt briefly in regard to prior level of function and discharge plan. PCP: Dr. Vann Specialists: Dr. Smith Insurance/Prescription Coverage: [employer] PPO Preferred [facility]acy: [facility] in [place] LW/POA: None on file, declined further information in admission assessment Living arrangements: Pt lives in a one story home w/ Prior level of function: Pt is independent with ADLs, drives, cares for self DME: Pt reports no DME, RN in room however and she mentioned pt does have oxygen at home that he uses intermittently. Pt confirmed this, cannot remember provider but states it's through a company in [place] SNF/HHC: Pt does not have history of HHC or SNF Plan: Pt plans to return home with and does not anticipate any homegoing needs. SW remains available should any needs arise. JACKSON Clay
--- NOTE | 2020-02-18 19:56 | NURSING ---
Pt ambulated in hallway first time post cath. pt tolerated well. groin site c/d/i.
[2020-02-18] MEDS: Atorvastatin Calcium 40 MG Tablet PO (21:27)
[2020-02-19 02:21] VITALS: BP 118/56; PULSE 71; RESP 18; TEMP 36.7; O2SAT 95
[2020-02-19 03:00] VITALS: PULSE 71
[2020-02-19 05:32] VITALS: BP 112/51; PULSE 77; RESP 17; TEMP 36.3; O2SAT 93
[2020-02-19 07:00] VITALS: PULSE 78
[2020-02-19 07:12] LABS: ALB/GLOB Ratio 0.9 RATIO (0.9-2.4); AST(SGOT) 27 U/L (15-37); Alanine Aminotransfer ALT/SGPT 22 U/L (16-61); Albumin, Serum 2.8 g/dL (3.2-5.0); Alkaline Phosphatase 69 U/L (45-117); Anion Gap 5 (5-15); BUN 45 mg/dL (7-18); BUN/Creat Ratio 34.4 RATIO (10-20); Calcium,Total 8.7 mg/dL (8.5-10.1); Chloride 107 mmol/L (98-107); Creatinine, Serum 1.31 mg/dL (0.70-1.30); EST Glomerular Filtration Rate 55 mL/min (>60); Est Glom Filt Rate - Afr Amer 67 mL/min (>60); Estimated Creatinine Clearance 35.34 ml/min; Globulin 3.2 g/dL (2.2-4.2); Glucose 114 mg/dL (74-106); Potassium 4.6 mmol/L (3.5-5.1); Sodium Level 139 mmol/L (136-145)
[2020-02-19] MEDS: Ipratropium/Albuterol Sulfate 3 ML AMPUL.NEB INHALATION (07:36)
[2020-02-19 07:37] VITALS: PULSE 65; RESP 18; O2SAT 93
[2020-02-19 08:40] LABS: Hematocrit 41.1 % (40-54); Hemoglobin 13.3 g/dL (13.0-16.5); Mean Corp Hgb Conc 32.4 g/dL (32-36); Mean Corpuscular Hgb 33.3 pg (27.0-32.0); Mean Platelet Vol. 10.2 fl (6.2-12.0); Platelet Count 236 K/mm3 (150-450); RBC Distribution Width CV 12.5 % (11.6-14.6); Red Blood Count 3.99 M/mm3 (4.6-6.2); White Blood Count 18.5 K/mm3 (4.4-11.0)
--- NOTE | 2020-02-19 09:45 | EKG12_ITS ---
Test Reason : POST PCI Blood Pressure : / mmHG Vent. Rate : 062 BPM Atrial Rate : 062 BPM P-R Int : 170 ms QRS Dur : 160 ms QT Int : 588 ms P-R-T Axes : 058 -60 244 degrees QTc Int : 596 ms Sinus rhythm with marked sinus arrhythmia Left axis deviation Right bundle branch block Marked T-wave abnormality, consider inferolateral ischemia Abnormal ECG Confirmed by BERE GONZALEZ, NIGEL ([id number]), legal editor SANDRA THORPE ([id number]) on 02/23/2020 10:11:13 AM Referred By: DR GUTIERREZ Confirmed By:NIGEL BLACKBURN MD
--- NOTE | 2020-02-19 09:52 | PCM.PN.CARD ---
Subjectve: 84-year-old white male had successful stenting of the venous graft to the ramus yesterday with no complication. Creatinine has dropped from 1.87-1.31. Potassium is 4.6. Patient denies any chest pain. Groin site is stable. Vital signs stable. Hemoglobin stable. White count is most likely secondary to IV steroids for the COPD Objective: Vital Signs Temp Pulse Resp BP Pulse Ox 97.4 F L 65 18 112/51 L 93 02/19/20 05:32 02/19/20 07:37 02/19/20 07:37 02/19/20 05:32 02/19/20 07:37 Oxygen Flow Rate (L/min) 2 Oxygen Delivery Method Nasal Cannula Weight: 133 lb 9.602 oz Body Mass Index (BMI) 21.5 Intake and Output for Last 24 Hours 02/17/20 02/18/20 02/19/20 23:59 23:59 23:59 Intake Total 1210 / 1210 1030 / 1030 485 / 485 Output Total 575 / 575 450 / 450 500 / 500 Balance 635 / 635 580 / 580 -15 / -15 General: Healthy Appearing, No Acute Distress Neck: Supple Lungs: Diminished Michel Bases, - - Bronchospasm has improved Cardiovascular: Regular Rhythm, Normal S1, Normal S2, No Murmurs, No Rubs, No Gallops Vascular: - - Right groin has healed well, no hematoma Abdomen: Bowel Sounds Present, Soft, Non Tender, No HSM, No Organomegaly Neurological: No Focal Motor or Sensory Deficit 02/17/20 03:18: B-Natriuretic Peptide 166.3 H 02/19/20 05:44: WBC 18.5 H, RBC 3.99 L, Hgb 13.3, Hct 41.1, MCV 103.0 H, MCH 33.3 H, MCHC 32.4, Plt Count 236, MPV 10.2 02/19/20 05:44: Sodium 139, Potassium 4.6, Chloride 107, Carbon Dioxide 27.0, Anion Gap 5, BUN 45 H, Creatinine 1.31 H, Est GFR (MDRD) Af Amer 67, Est GFR (MDRD) Non-Af 55 L, BUN/Creatinine Ratio 34.4 H, Glucose 114 H, Calcium 8.7, Total Bilirubin 0.70 Rhythm: EKG: ECHO: Stress Test: Cardiac Cath: PCI: CT Surgery: Holter monitor: EPS: PPM: CXR: Chest CT Scan: Medical Necessity - Tobacco Use Smoking Status: Current every day smoker Tobacco Use: Pipe Assessment/Plan #1 non-STEMI with symptoms of shortness of breath now improved, patient had stenting of the venous graft to the ramus. EKG showed deep T wave inversion suggestive of good perfusion. Groin stable. Renal function improving. From cardiac standpoint patient can be discharged. Patient should be followed in the cardiology clinic in [address] 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
[2020-02-19] MEDS: Multivitamins,Therapeutic Tablet 1 TABLET PO ×2 (10:16→10:21)
[2020-02-19] MEDS: Cyanocobalamin 500 MCG Tablet PO (10:16)
[2020-02-19] MEDS: Clopidogrel Bisulfate 75 MG Tablet PO (10:17)
[2020-02-19] MEDS: Magnesium Chloride 64 MG Delay Rel.Tablet 128 MG PO (10:21)
--- NOTE | 2020-02-19 11:28 | PCM.DC ---
- Discharge Diagnoses Current Active Problems: Current Active and Chronic Problems (Last Reviewed 02/17/20 @ 05:[address] 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) Chronic obstructive pulmonary disease (Chronic) Ischemic cardiomyopathy (Chronic) EF 35% You will use the following diet at home:: Cardiac Your food should be the consistency of: Regular Your liquids should be the consistency of: Regular/Thin Discharge Activity: Return to Normal Activity Weight Bearing Status: Weight bearing as tolerated Call your doctor if you observe: Fever of 101 or Higher, Shortness of breath, Dizziness, Swelling in the ankles, Chest pain, Increased palpitations (irregular heartbeat) Instructions: ED Heart Disease Risk Factors, Symptoms of a Heart Attack, Heart Attack Allergies/Adverse Reactions: Allergies iodine Allergy (Severe, Verified 02/17/20 03:19) Rash amlodipine Adverse Reaction (Severe, Verified 02/17/20 03:19) SOB Medications to take at Discharge B Complex with Vitamin C [B-Complex Plus Vitamin C] 1 ea PO DAILY 09/16/16 Cyanocobalamin [Vitamin B12] 500 mcg PO DAILY@0800 09/16/16 Magnesium Oxide [Mag-Ox 400] 400 mg PO DAILY 09/16/16 Multivitamin [Multiple Vitamins] 1 ea PO DAILY 09/16/16 aspirin 81 mg tablet,delayed release 81 mg PO .COMPLEX 11/18/17 Fluticasone/Vilanterol [Breo Ellipta 100-25 Mcg INH] 1 puff INHALATION DAILY 01/10/19 Red Yeast Rice 600 mg PO DAILY 01/10/19 Sennosides/Docusate Sodium [Senna-S Tablet] 1 ea PO BID PRN PRN #30 tab 01/11/19 albuterol sulfate 90 mcg/actuation aerosol inhaler 2 puff INHALATION Q4H PRN PRN 01/18/19 Atorvastatin Calcium [Lipitor] 40 mg PO QHS #30 tab 02/19/20 Clopidogrel Bisulfate [Plavix] 75 mg PO DAILY #30 tab 02/19/20 The following prescriptions were given: Atorvastatin Calcium [Lipitor] 40 mg PO QHS #30 tab Transmission Status: Received by [id number] Clopidogrel Bisulfate [Plavix] 75 mg PO DAILY #30 tab Transmission Status: Received by [id number] Primary Care Physician: Sergio Vann MD [Primary Care Provider] - Please follow up with your Primary Care Physician in: 1-2 weeks Test Results: Test results from this visit will be discussed in further detail at your follow-up appointment, if applicable. Please Follow Up With: Segrio Smith MD When: 2-3 weeks; call office for an appointment Proposed Discharge Date: 02/19/20
[2020-02-19 11:30] VITALS: BP 118/69; PULSE 64; RESP 18; TEMP 36.6
--- NOTE | 2020-02-19 11:30 | PCM.DC.SUM ---
Discharge Date and Diagnosis - Problem List Patient Problems: Active and Suspected Problems (Last Reviewed 02/17/20 @ 05:[address] Dedrick Tsai MD) Non-STEMI (non-ST elevated myocardial infarction) (Acute) COPD exacerbation (Acute) Date of Admission: 02/17/20 Date of Discharge: 02/19/20 - Primary Discharge Diagnosis Acute Problems: Active Problems (Last Reviewed 02/17/20 @ 05:[address] Dedrick Tsai MD) Non-STEMI (non-ST elevated myocardial infarction) (Acute) COPD exacerbation (Acute) - Secondary Discharge Diagnosis Chronic Problems: Chronic Problems (Last Reviewed 02/17/20 @ 05:[address] Dedrick Tsai MD) Essential hypertension (Chronic) History of coronary artery bypass surgery (Chronic ~2002) VIVEROS to the LAD, SVG to the ramus intermedius circumflex branch, SVG to the PDA 1999 History of coronary artery stent placement (Chronic) PVCs (premature ventricular contractions) (Chronic) Atherosclerotic heart disease of [place] coronary artery without angina pectoris (Chronic) Chronic obstructive pulmonary disease (Chronic) Ischemic cardiomyopathy (Chronic) EF 35% Hospital Course and Treatment Imaging Results: Diagnostic Data Chest X-Ray 02/17/20 03:40 IMPRESSION: No radiographic evidence of acute cardiopulmonary disease. Electronically Signed: Lynda Saldaña MD at 4:41 EST , Service support , cardiology- Dr Pearson Operations: None Procedures: 2-D Echocardiogram, Cardiac catheterization Summary of Care Provided: The patient is a 84 year old M with past medical history as outlined was admitted through the ED on 02/17/2020 with a complaint of shortness of breath which started about few hours prior to admission. Shortness of breath had progressively been getting worse. Patient states he is supposed to use oxygen at home for COPD but typically does not use it because he does not think he needs it. However due to these symptoms, he had to use his shortness of breath before admission. He also had increasing wheezing. And he also had a feeling of indigestion in his upper abdominal area. Chest x-ray on admission showed no acute cardiopulmonary process and EKG showed no acute ST changes. Initial troponin was 0.633. He was admitted and managed for acute COPD exacerbation initially. Troponins trended up and he was managed for non-STEMI. Cardiology was consulted. He was put on aspirin 325 mg daily and high intensity statin as well as therapeutic lovenox. He was also started on IV solumedrol for COPD exacerbation. He had cardiac cath which showed severe proximal stenosis fo the venous graft to the ramus, and a stent was placed in this venous graft to the ramus. He was put on aspirin, plavix and high intensity statin. 2D echo shoed EF of 55%. with left ventricular systolic function which was normal,a dn stage 1 diastolic dysfunction and mild aortic stenosis. Patient remained stable, and and was discharged home on 02/19/2020. He is to follow up with his PCP, and mechanical pencils assembler in 2 weeks.. He wasnt started on an TYRON inhibitor or ARB o/a of his impaired kidney function. He wasnt also started on beta zhen because of his acute COPD exacerbation. He is to follow up with his mechanical pencils assembler on outpatient basis for decision to be made about starting beta zhen and TYRON inhibitor/ARB Patient seen and examined prior to discharge. He was eager to be discharged and had no complaints. Review of systems is otherwise negative. Labs and vitals reviewed, home medications reviewed and reconciled. O/E: Vital Signs Temp Pulse Resp BP Pulse Ox 97.8 F 64 18 118/69 93 02/19/20 11:30 02/19/20 11:30 02/19/20 11:30 02/19/20 11:30 02/19/20 07:37 [] General: Alert, Oriented x3, Cooperative, No apparent distress HEENT: Atraumatic, PERRLA, EOMI, Normocephalic Oral: Dry Mucosa Neck: Supple, No JVD, Negative Carotid Bruits Lungs: Clear to auscultation, Normal air movement, No rhonchi, No wheeze, No rales, - - on 2L of oxygen by nasal canula Cardiovascular: Regular rate, Regular Rhythm, Normal S1, Normal S2, No murmurs Abdomen: Bowel Sounds Present, Soft, Non Tender, Non-Distended, No Hepato-splenomegaly Extremities: No clubbing, No cyanosis, No edema, Capillary Refill Less than 3 Seconds Skin: No rashes, No breakdown Musculoskeletal: No Tenderness to Palpation of Joints or Extremities Lymphatic: No Cervical, Supraclavicular, or Inguinal Adenopathy Neurological: Cranial nerves II-XII grossly intact, Neuro grossly intact, Motor Exam 5/5 strength throughout Psych/Mental Status: Normal Affect, Appropriate, Alert and oriented to time, place, person, mood and affect Patient is to continue using his oxygen as needed at home for shortness of breath. Patient Problems: Active and Suspected Problems (Last Reviewed 02/17/20 @ 05:[address] Dedrick Tsai MD) Non-STEMI (non-ST elevated myocardial infarction) (Acute) COPD exacerbation (Acute) - Physical Exam Vitals/I&O's: Vital Signs Temp Pulse Resp BP Pulse Ox 97.4 F L 65 18 112/51 L 93 02/19/20 05:32 02/19/20 07:37 02/19/20 07:37 02/19/20 05:32 02/19/20 07:37 Oxygen Flow Rate (L/min) 2 Oxygen Delivery Method Room Air Weight: 133 lb 9.602 oz Body Mass Index (BMI) 21.5 Intake and Output for Last 24 Hours 02/17/20 02/18/20 02/19/20 23:59 23:59 23:59 Intake Total 1210 / 1210 1030 / 1030 485 / 485 Output Total 575 / 575 450 / 450 500 / 500 Balance 635 / 635 580 / 580 -15 / -15 Microbiology Past 72 Hours 02/17/20 03:25 Mucosa - Nose SARS-CoV-2 Antigen (Rapid) - Final Laboratory Results 02/17/20 03:18: Diff Path Review Reviewed 02/17/20 03:18: B-Natriuretic Peptide 166.3 H 02/18/20 09:09: Activated Clotting Time 241 H 02/18/20 09:30: Activated Clotting Time 263 H 02/18/20 11:03: Activated Clotting Time 219 H 02/18/20 12:03: Activated Clotting Time 191 H 02/18/20 12:57: Activated Clotting Time 169 H 02/19/20 05:44: WBC 18.5 H, RBC 3.99 L, Hgb 13.3, Hct 41.1, MCV 103.0 H, MCH 33.3 H, MCHC 32.4, RDW Std Deviation 47.0 H, RDW Coeff of Alis 12.5, Plt Count 236, MPV 10.2 02/19/20 05:44: Sodium 139, Potassium 4.6, Chloride 107, Carbon Dioxide 27.0, Anion Gap 5, BUN 45 H, Creatinine 1.31 H, Estim Creat Clear Calc 35.34, Est GFR (MDRD) Af Amer 67, Est GFR (MDRD) Non-Af 55 L, BUN/Creatinine Ratio 34.4 H, Glucose 114 H, Calcium 8.7, Total Bilirubin 0.70, AST 27, ALT 22, Alkaline Phosphatase 69, Total Protein 6.0 L, Albumin 2.8 L, Globulin 3.2, Albumin/Globulin Ratio 0.9 Current Medications Acetaminophen (Acetaminophen 325 Mg Tablet) 650 mg PO Q6H PRN PRN PRN Reason: Pain Score 1-10/Temp > 100.7 F Albuterol Sulfate (Albuterol 2.5 Mg/3 Ml Vial.Neb.) 2.5 mg INHALATION Q2H PRN PRN PRN Reason: SOB/Wheezing Albuterol/Ipratropium (Ipratropium/Albuterol Sulfate 3 Ml Ampul.Neb) 3 ml INHALATION Q4HWA.RT [facility] Last Admin: 02/19/20 07:36 Dose: 3 ml Documented by: Aspirin (Aspirin E.C. 81 Mg Tablet) 81 mg PO Q72H [facility] Last Admin: 02/18/20 06:20 Dose: 81 mg Documented by: Atorvastatin Calcium (Atorvastatin Calcium 40 Mg Tablet) 40 mg PO QHS [facility] Last Admin: 02/18/20 21:27 Dose: 40 mg Documented by: Atropine Sulfate (Atropine Sulfate 1 Mg/10 Ml Syringe) 0.5 mg IV UD PRN PRN Reason: HR <50 bpm Clopidogrel Bisulfate (Clopidogrel Bisulfate 75 Mg Tablet) 75 mg PO DAILY [facility] Last Admin: 02/19/20 10:17 Dose: 75 mg Documented by: Cyanocobalamin (Cyanocobalamin 500 Mcg Tablet) 500 mcg PO DAILY@0800 [facility] Last Admin: 02/19/20 10:16 Dose: 500 mcg Documented by: Sodium Chloride () 1,000 mls @ 0 mls/hr IV .Q0M [facility] Sodium Chloride () 500 mls @ 75 mls/hr IV .Q6H40M [facility] Last Admin: 02/19/20 05:37 Dose: 75 mls/hr Documented by: Labetalol HCl (Labetalol (Prefilled) 20 Mg/4 Ml) 5 mg IV X1 PRN PRN Reason: SBP >160 when pulling sheath Stop: 02/20/20 09:42 Magnesium Chloride (Magnesium Chloride 64 Mg Delay Rel.Tablet) 128 mg PO DAILY [facility] Last Admin: 02/19/20 10:21 Dose: 128 mg Documented by: Melatonin (Melatonin 3 Mg Tablet) 3 mg PO QHS PRN PRN PRN Reason: INSOMNIA Methylprednisolone (Methylprednisolone 40 Mg/Ml Vial) 40 mg IV Q8 [facility] Last Admin: 02/19/20 05:36 Dose: 40 mg Documented by: Multivitamins (Multivitamins,Therapeutic Tablet) 1 tablet PO DAILYCM [facility] Last Admin: 02/19/20 10:21 Dose: 1 tablet Documented by: Nebivolol (Nebivolol Hcl 5 Mg Tablet) 5 mg PO DAILY [facility] Last Admin: 02/19/20 10:17 Dose: Not Given Documented by: Ondansetron HCl (Ondansetron 4 Mg/2 Ml Vial) 4 mg IV Q8H PRN PRN PRN Reason: NAUSEA/VOMITING Senna/Docusate Sodium (Senna/Docusate Sodium 1 Tablet) 1 tablet PO BID PRN PRN PRN Reason: constipation Sodium Chloride (0.9% Saline Lock 10 Ml Syringe) 10 - 40 ml IV UD PRN PRN Reason: SALINE FLUSH Last Admin: 02/17/20 21:48 Dose: 10 ml Documented by: Sodium Chloride (0.9% Normal Saline 500 Ml Iv.Soln.) 500 ml IV BOLUS PRN PRN Reason: VASO-VAGAL PROTOCOL Discharge Diet: Low fat/ Low Cholesterol Discharge Activity: Return to Normal Activity Weight Bearing Status: Weight bearing as tolerated Call your doctor if you observe: Fever of 101 or Higher, Shortness of breath, Dizziness, Swelling in the ankles, Chest pain, Increased palpitations (irregular heartbeat) Home Medications: Medications to take at Discharge B Complex with Vitamin C [B-Complex Plus Vitamin C] 1 ea PO DAILY 09/16/16 Cyanocobalamin [Vitamin B12] 500 mcg PO DAILY@0800 09/16/16 Magnesium Oxide [Mag-Ox 400] 400 mg PO DAILY 09/16/16 Multivitamin [Multiple Vitamins] 1 ea PO DAILY 09/16/16 aspirin 81 mg tablet,delayed release 81 mg PO .COMPLEX 11/18/17 Fluticasone/Vilanterol [Breo Ellipta 100-25 Mcg INH] 1 puff INHALATION DAILY 01/10/19 Red Yeast Rice 600 mg PO DAILY 01/10/19 Sennosides/Docusate Sodium [Senna-S Tablet] 1 ea PO BID PRN PRN #30 tab 01/11/19 albuterol sulfate 90 mcg/actuation aerosol inhaler 2 puff INHALATION Q4H PRN PRN 01/18/19 Atorvastatin Calcium [Lipitor] 40 mg PO QHS #30 tab 02/19/20 Clopidogrel Bisulfate [Plavix] 75 mg PO DAILY #30 tab 02/19/20 Following Prescriptions Were Given to Patient: Atorvastatin Calcium [Lipitor] 40 mg PO QHS #30 tab Transmission Status: [id number] Clopidogrel Bisulfate [Plavix] 75 mg PO DAILY #30 tab Transmission Status: Received by [facility] Primary Care Physician: Sergio Vann MD [Primary Care Provider] - Please follow up with your Primary Care Physician in: 1-2 weeks Please Follow Up With: Sergio Smith MD When: 2-3 weeks; call office for an appointment Patient Instructions: Symptoms of a Heart Attack, Heart Attack, ED Heart Disease Risk Factors Disposition: Home Minutes spent on discharge:: 35 Patient Condition:: Stable Medical Necessity - Tobacco Use Smoking Status: Current every day smoker Tobacco Use: Pipe Meaningful Use Info Meaningful Use Diagnoses (Choose all that apply): AMI - AMI/Post PCI/Angioplasty Aspirin given w/in 24hrs of arrival?: Yes ASA at discharge?: Yes Antiplatelet Therapy at Discharge:: Yes Statins at discharge?: Yes Tyron/ARB at discharge?: No Reason Tyron/ARB not ordered:: Worsening renal dysfunctn Beta Zhen at discharge?: Yes Done w/ Acute MT measure.: Yes Documented LVEF (%): 55 Inpatient E&M: 16441 Disch Hosp
--- NOTE | 2020-02-19 12:25 | NURSING ---
Patient discharged into the care of family. NADN at this time. IV dc Discharge paperwork and rxs given to patient. Patient taken to hosptial entrance via wheelchair/
--- NOTE | 2020-02-21 11:16 | CRPHASE1_ITS ---
Patient Communication Choice Letter Given to Patient:: No - CALLED PT AT HOME ON MAILED A BROCHURE THIS DAY AND ALSO EXPLAINED Guide to Cardiac Rehab Given by ICU Staff Prior to Discharge: No Guide to Cardiac Rehab Mailed to Patient by CR Staff:: Yes - SPOKE WITH PT ON PHONE, EXPLAINED PROGRAM AND MAILED GUIDE BOOKLET Patient Contacted Post Discharge by CR Staff:: Yes - CALLED AND SPOKE WITH PT ON 02/21/2020 PHII Cardiac Rehab Referral:: [facility] Risk Factors/Lifestyle Family History: Family History (Last Reviewed 02/17/20 @ 05:[address] Dedrick Tsai MD) Father CVA (cerebral vascular accident) Mother CAD (coronary artery disease) Hypertension Brother Hypertension Heart disease Laboratory Values: Cardiac Rehab Phase I Labs Triglycerides 60 mg/dL (-199) 02/17/20 03:55 Cholesterol 171 mg/dL (200) 02/17/20 03:55 LDL Cholesterol 81 mg/dL (0-130) 02/17/20 03:55 HDL Cholesterol 78 mg/dL (40-) 02/17/20 03:55 Cardiac Rehabilitation Info Cardiac Rehabilitation Program Information: Cardiac Rehabilitation is important for patients like you who are recovering from a heart problem. Cardiac rehabilitation programs are recognized as integral to the continued care of the patient with coronary heart disease. The cardiac rehabilitation program is designed to optimize a patient's physical, psychological, and social functioning. Health director of career resources work in cardiac rehabilitation programs and assist you with getting the treatments you need to get stronger and healthier - like exercise, healthy eating habits, and medications. Cardiac rehabilitation has been show to help people with heart problems live longer and have better life enjoyment than people who do not go to cardiac rehabilitation. Please contact the Cardiac Rehabilitation Program at [facility] at in two weeks if you have not heard from them.
--- NOTE | 2020-02-21 11:23 | CRPH1.INSTRU ---
General Education CAD and cardiac anatomy and function:: Not instructed - PT WAS DISCHARGED. BOOKLET MAILED TO PT. EXPLAINED CR PROGRAM TO PT. WILL F/U TO SCHEDULE INTERVIEW.
--- NOTE | 2020-02-21 13:12 | CASEMGMT ---
KRYSTLE GRIGSBY DC PHONE CALL DC DATE: 02/19/2020 DC DISPOSITION: Home DC DIAGNOSIS: Non STEMI LACE/STRATA: 12/24 F/U APPTS MADE PRIOR TO DC: no. (weekend dc) PRESCRIPTIONS ACQUIRED BY PT: yes Intro role of CM to patient via phone. Patient states he does not have questions re: medications- he has his prescriptions and understands purpose. He has not made f/u appointments yet but states he will today. Does not need assist with this and is aware recommendation is for PCP and cardiology. No care improvement suggestions were given and no concerns. Luis BASSETT RN CM
== END 2020-02-19 12:10 | disposition home or self-care (01) | DRG 247 ==
LOC: ED 03:33 → PCU 05:42
PROVIDERS: Internal Medicine Cardiovascular Disease; Admitting Provider Hospitalist; Emergency Provider Emergency Medicine; PCP Family Medicine; Visit Provider Student in an Organized Health Care Education/Training Program
DX: I21.4 Non-ST elevation (NSTEMI) myocardial infarction (principal); J44.1 Chronic obstructive pulmonary disease with (acute) exacerbation; I50.22 Chronic systolic (congestive) heart failure; J96.11 Chronic respiratory failure with hypoxia; N17.9 Acute kidney failure, unspecified; I11.0 Hypertensive heart disease with heart failure; I25.5 Ischemic cardiomyopathy; I25.10 Atherosclerotic heart disease of native coronary artery without angina pectoris; F17.290 Nicotine dependence, other tobacco product, uncomplicated; Z99.81 Dependence on supplemental oxygen; Z95.1 Presence of aortocoronary bypass graft; I25.84 Coronary atherosclerosis due to calcified coronary lesion
CPT/HCPCS: 36415; 71045; 80048; 80053; 80061; 83880; 84484; 85025; 85027; 85347; 87426; 92937; 93005; 93306; 93455; 94640; 99285; C1887; J7030; J7040; Q9967; A4216; C1769; C1874; C1884; C9604; J3490

== ENCOUNTER 2020-03-31 12:43 | Observation (INO) | payer MEDICARE, SELFPAY ==
[2020-02-17 06:03] VITALS: BMI 21.5
[2020-03-31] VITALS (8 sets, daily range): BP systolic 125–173; BP diastolic 59–87; PULSE 61–85; RESP 18–20; TEMP 36.6–36.9; O2SAT 91–96; BMI 22.3; BMI 21.9
--- NOTE | 2020-03-31 12:57 | EKG12_ITS ---
Test Reason : CP Blood Pressure : / mmHG Vent. Rate : 074 BPM Atrial Rate : 074 BPM P-R Int : 154 ms QRS Dur : 158 ms QT Int : 434 ms P-R-T Axes : 077 -68 061 degrees QTc Int : 481 ms Sinus rhythm with sinus arrhythmia with occasional Premature ventricular complexes Left axis deviation Right bundle branch block Abnormal ECG Confirmed by MARGARETTE GONZALEZ, RENATA ([id number]), fan mail editor SANDRA THORPE ([id number]) on 04/03/2020 9:39:14 AM Referred By: Confirmed By:RENATA PFEIFFER MD
--- NOTE | 2020-03-31 12:58 | ED.DCSUM_ITS ---
- ER Visit Summary Date of Service: 03/31/20 Chief Complaint: [Chest pain] History of Present Illness: The patient is a 85 M [presents to the emergency department complaint of chest pain that started about a week ago. Patient states that he has been having intermittent discomfort but sometimes he will take Tylenol and it will go away. Patient describes it as a soreness to the left upper chest that radiates straight through to his shoulder blade on the left. Patient denies any nausea or vomiting. He states that he has a little bit of shortness of breath with it but he always does because of his COPD. He denies any diaphoresis. Patient was seen by his primary care physician today Dr. Sergio Vann who referred patient to the emergency department via EMS for further work-up and evaluation. Patient has history of coronary artery disease with prior CABG. Patient had a stent placed in January and states that he continued] Physical Examination: [] Test Results: [] Emergency Department Course and Treatment: [] Treatment Plan: [] Disposition: [] Impression: [] This note was generated with [employer] software. It may contain incorrect words, spelling, and punctuation that were not noted in review of the chart prior to signing ED Disposition - Plan for ED Patient: Referrals: Sergio Vann MD [Primary Care Provider] -
--- NOTE | 2020-03-31 12:59 | ED.VISSUMM ---
- ER Visit Summary Date of Service: 03/31/20 Chief Complaint: [Chest pain] History of Present Illness: The patient is a 85 M [presents to the emergency department chest pain that started a week ago. Patient describes a soreness to his skin left upper chest that radiates through to his back. Patient states that sometimes he will take Tylenol and will completely resolve. He feels somewhat short of breath with it but he always has some shortness of breath due to his COPD. Patient denies fever or cough or recent illness. He was being seen by his primary care physician Dr. Sergio Vann today and was referred to the emergency department via EMS. Patient did receive 4 baby aspirin prior to arrival in the department. Currently has no chest pain. Patient incidentally had a stent placed in January and was supposed to be on Plavix but after a week he took himself off the Plavix because he felt it was making him lightheaded or dizzy. Patient also only takes aspirin intermittently due to the fact that at times she will wake up with nosebleeds. Patient denies recent travel or surgery. He is not had any history of PE or DVT.] Physical Examination: [HEENT-PERRLA, EOMI. Cranial nerves II through XII grossly intact. TMs clear. Mucous membranes moist. No adenopathy. Cardiovascular-regular rate and rhythm without murmur or ectopy. Patient does have old scar over sternum from prior CABG. Lungs-clear to auscultation, chest wall stable without crepitus or subcu emphysema Abdomen-normoactive bowel sounds, soft, nontender, no rebound or rigidity, no peritoneal signs. Extremities-intact ?4, normal range of motion, normal pulses, atraumatic] Test Results: [EKG obtained arrival showed a sinus rhythm with a ventricular rate of 74 bpm with a right bundle branch block and occasional PVCs. Chest x-ray showed some hyperinflation as interpreted by myself otherwise nothing acute. Radiology in agreement. Patient CBC with differential showed a white count of 8.4, hemoglobin 15, hematocrit 47, placed 248. Chemistries unremarkable. Troponin was 0.015.] Emergency Department Course and Treatment: [ Established on arrival. Patient placed on bus driver/monitor. He was pain-free on arrival. I discussed case with Dr. Sergio Smith who is patient's carpenter maintenance and was recommended that we admit the patient for cardiac rule out and possible stress testing in the morning.] Treatment Plan: [Admit Disposition: [Admit] Impression: [Chest pain-rule out acute coronary syndrome] This note was generated with [employer]ation software. It may contain incorrect words, spelling, and punctuation that were not noted in review of the chart prior to signing ED Disposition - Plan for ED Patient: Referrals: Sergio Vann MD [Primary Care Provider] -
--- NOTE | 2020-03-31 13:09 | RAD_ITS ---
STUDY: X-RAY CHEST REASON FOR EXAM: Male, 85 years old. Chest pain TECHNIQUE: Single AP portable view of the chest. COMPARISON: Comparison is made with prior study dated 02/17/2020. FINDINGS: EKG electrodes are seen. There is hyperinflation of the lungs consistent with chronic obstructive lung disease (COPD). There is no demonstrated pleural abnormality. Sternal cerclage wires and vascular clips are present from a prior sternotomy and coronary artery bypass graft procedure (CABG). Normal mediastinum and rajan. Normal visualized pulmonary arteries. There is atherosclerotic calcification of the aortic arch with tortuosity. There are diffuse degenerative changes of the visualized thoracic spine. Normal visualized ribs, clavicles, and shoulders. There is no demonstrated abnormality of the visualized soft tissue structures of the upper abdomen. RAD/Chest 1 View (Portable) IMPRESSION: Hyperinflation. The lungs are clear. Electronically Signed: Todd Duron, at 13:20 EST , Service support ,
[2020-03-31 13:11] LABS: Absolute Lymphocyte Count 1.83 X10^3/uL (0.83-4.51); Absolute Neutrophil Count 5.1 X10^3/uL (2.0-7.7); Basophil# 0.08 X10^3/uL; Eosinophil# 0.43 X10^3/uL; Eosinophils% 5.1 % (0-5); Hematocrit 47.3 % (40-54); Hemoglobin 15.5 g/dL (13.0-16.5); Lymphocyte # 1.83 X10^3/ul (4.0); Lymphocyte % 21.9 % (19-41); Mean Corp Hgb Conc 32.8 g/dL (32-36); Mean Corpuscular Hgb 32.4 pg (27.0-32.0); Mean Platelet Vol. 9.6 fl (6.2-12.0); Monocyte# 0.86 X10^3/uL; Monocyte% 10.3 % (0-10); NRBC Flagged by Analyzer 0 % (0-5); Neutrophil # 5.14 X10^3/uL (2.7-7.7); Neutrophil % 61.5 % (47-70); Platelet Count 248 K/mm3 (150-450); RBC Distribution Width CV 12.5 % (11.6-14.6); RBC Distribution Width SD 45.5 fl (35.1-43.9); Red Blood Count 4.78 M/mm3 (4.6-6.2); White Blood Count 8.4 K/mm3 (4.4-11.0)
[2020-03-31 13:21] LABS: Anion Gap 3 (5-15); BUN 14 mg/dL (7-18); BUN/Creat Ratio 12.4 RATIO (10-20); Calcium,Total 9.1 mg/dL (8.5-10.1); Chloride 110 mmol/L (98-107); Creatinine, Serum 1.13 mg/dL (0.70-1.30); EST Glomerular Filtration Rate 65 mL/min (>60); Est Glom Filt Rate - Afr Amer 79 mL/min (>60); Estimated Creatinine Clearance 42.94 ml/min; Glucose 85 mg/dL (74-106); Potassium 4.4 mmol/L (3.5-5.1); Sodium Level 142 mmol/L (136-145)
[2020-03-31] MEDS: 0.9% Normal Saline 1,000 ML 150 ML IV (13:46)
--- NOTE | 2020-03-31 14:16 | PCM.HP.STD ---
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 (4) Non-STEMI (non-ST elevated myocardial infarction) Status: Inactive (5) Essential hypertension Status: Chronic (6) History of coronary artery bypass surgery Status: Chronic Comment: VIVEROS to the LAD, SVG to the ramus intermedius circumflex branch, SVG to the PDA 1999 (7) COPD exacerbation Status: Inactive (8) Acute respiratory failure with hypoxia Status: Inactive (9) History of coronary artery stent placement Status: Chronic (10) PVCs (premature ventricular contractions) Status: Chronic (11) Atherosclerotic heart disease of [place] coronary artery without angina pectoris Status: Chronic Qualifiers: (12) Chronic obstructive pulmonary disease Status: Chronic (13) Ischemic cardiomyopathy Status: Chronic Comment: EF 35% History of Present Illness Date of Admission: 03/31/20 Chief Complaint: chest pain The patient is a 85 year old M who has been experiencing left-sided chest pain over the past 5 days. He states that it gets worse when he goes to bed at nights but takes some Tylenol and it resolves. Not exacerbation by activity. Feels similar to when he has had pleurisy in the past. Patient had PCI to his venous graft to the ramus. Patient was discharged with aspirin and clopidogrel at that time. Patient was having dizziness and discontinue the clopidogrel after a week. He did not notify anyone of this change. His dizziness did resolve with stopping the clopidogrel. Patient has continued to take the aspirin though he did stop it temporarily when he had epistaxis but that is since resolved patient is continue to take his aspirin. As to why the patient did not notify any physicians about discontinuing clopidogrel, he said that he did not know why he was on it and but is causing his dizziness and discontinued it. [] Past Medical History Past Medical History (Chronic Problems): Chronic Problems (Last Updated 02/22/20 @ 08:36 by Dottie Eagle) Presence of stent of bypass graft (Chronic ~02/18/20) Lesion: PCI/CATHY of the venous graft to the ramus 02/18/20 Atherosclerosis of coronary artery bypass graft without angina pectoris (Chronic) Essential hypertension (Chronic) History of coronary artery bypass surgery (Chronic ~2002) VIVEROS to the LAD, SVG to the ramus intermedius circumflex branch, SVG to the PDA 1999 History of coronary artery stent placement (Chronic) PVCs (premature ventricular contractions) (Chronic) Atherosclerotic heart disease of [place] coronary artery without angina pectoris (Chronic) Chronic obstructive pulmonary disease (Chronic) Ischemic cardiomyopathy (Chronic) EF 35% Medical History: Medical History (Last Reviewed 03/31/20 @ 14:[address] Matthew Graham, DO) Presence of stent of bypass graft (Chronic) Onset Date: ~02/18/20 Z95.828 Lesion: PCI/CATHY of the venous graft to the ramus 02/18/20 Atherosclerosis of coronary artery bypass graft without angina pectoris (Chronic) I25.810 Essential hypertension (Chronic) I10 PVCs (premature ventricular contractions) (Chronic) I49.3 Atherosclerotic heart disease of [place] coronary artery without angina pectoris (Chronic) I25.10 Chronic obstructive pulmonary disease (Chronic) J44.9 Ischemic cardiomyopathy (Chronic) I25.5 EF 35% Allergies iodine Allergy (Severe, Verified 03/31/20 12:48) Rash amlodipine Adverse Reaction (Severe, Verified 03/31/20 12:48) SOB Home Medications: Ambulatory Orders Medication Instructions Recorded Cyanocobalamin [Vitamin B12] 500 mcg PO DAILY@0800 09/16/16 Magnesium Oxide [Mag-Ox 400] 400 mg PO DAILY 09/16/16 Multivitamin [Multiple Vitamins] 1 ea PO DAILY 09/16/16 Fluticasone/Vilanterol [Breo 1 puff INHALATION DAILY 01/10/19 Ellipta 100-25 Mcg INH] Red Yeast Rice 600 mg PO DAILY 01/10/19 albuterol sulfate 90 mcg/actuation 2 puff INHALATION Q4H PRN PRN 01/18/19 aerosol inhaler Atorvastatin Calcium [Lipitor] 40 mg PO QHS #30 tab 02/19/20 Surgical History: Surgical History (Last Reviewed 03/31/20 @ 14:[address] Matthew Graham, DO) History of coronary artery bypass surgery (Chronic) Onset Date: ~2002 Z95.1 VIVEROS to the LAD, SVG to the ramus intermedius circumflex branch, SVG to the PDA 1999 History of coronary artery stent placement (Chronic) Z95.5 History of transurethral resection of prostate Z98.890, Z90.79 Surgical History: cholecystectomy, coronary bypass surgery Smoking Status: Former smoker - *Family History Maternal Family History: Family History (Last Reviewed 03/31/20 @ 14:[address] Matthew Graham, DO) Father CVA (cerebral vascular accident) Mother CAD (coronary artery disease) Hypertension Brother Hypertension Heart disease Review of Systems Constitutional: Reports: - - No COVID-19 contacts. Denies: Anorexia, Night Sweats Eyes: Denies: Blurred vision, Eyelid Inflammation HEENT: Denies: Head Aches, Sinus Congestion, Sinus Drainage Cardiovascular: Reports: Chest Pain. Denies: Palpitations Respiratory: Reports: Shortness of Breath - Chronic Gastrointestinal: Denies: Abdominal Pain, Nausea, Vomiting Genitourinary: Denies: Dysuria Musculoskeletal: Denies: Joint Pain, Joint Tenderness Skin: Denies: Rash, Wounds Neurological: Denies: Numbness, Tingling, Focal weakness Psychiatric: Denies: Anxiety, Depression Hematologic/ Lymphatic: Denies: Easy Bruising, Easy Bleeding, Hx of blood clot Comment: All review of systems were negative except as mentioned above in the history of present illness and the other review of systems. VTE Information - Inpt Only VTE Present on Admission: No VTE Mechan Device Prophylaxis: None VTE Pharm Prophylaxis ordered?: No Reason prophylaxis not ordered:: Treatment Not Indicated - Physical Exam Vitals/I&O's: Vital Signs Temp Pulse Resp BP Pulse Ox 36.6 C 68 20 H 167/76 H 94 03/31/20 13:46 03/31/20 13:46 03/31/20 13:46 03/31/20 13:46 03/31/20 13:46 Oxygen Delivery Method Room Air Weight: 64.7 kg Body Mass Index (BMI) 22.3 General: Alert, Cooperative, No apparent distress HEENT: Atraumatic, Normocephalic Oral: Moist Mucosa, No Gingival or Mucosal Lesions/ Ulcerations Neck: No Nodes, Thyroid Normal Size and Texture Lungs: Clear to auscultation, Normal air movement, No rhonchi, No wheeze, No rales Cardiovascular: Regular rate, Regular Rhythm, Normal S1, Normal S2, No murmurs Abdomen: Bowel Sounds Present, Soft, Non Tender, Non-Distended, No Hepato-splenomegaly Extremities: No edema, No Calf Tenderness Skin: - - Very faint erythema medial to the left nipple but also medial between the nipple and his chest. Areas roughly around 2 cm in diameter. No evidence of any vesicles. Musculoskeletal: - - Mild reproducible left-sided anterior chest wall tenderness in the lower chest Psych/Mental Status: Normal Affect, Appropriate Laboratory Results 03/31/20 12:55: WBC 8.4, RBC 4.78, Hgb 15.5, Hct 47.3, MCV 99.0 H, MCH 32.4 H, MCHC 32.8, RDW Std Deviation 45.5 H, RDW Coeff of Alis 12.5, Plt Count 248, MPV 9.6, Immature Gran % (Auto) 0.200, Neut % (Auto) 61.5, Lymph % (Auto) 21.9, Morrison % (Auto) 10.3 H, Eos % (Auto) 5.1 H, Baso % (Auto) 1.0, Absolute Neuts (auto) 5.1, Absolute Lymphs (auto) 1.83, Nucleated RBC % 0 03/31/20 12:55: Sodium 142, Potassium 4.4, Chloride 110 H, Carbon Dioxide 29.0, Anion Gap 3 L, BUN 14, Creatinine 1.13, Estim Creat Clear Calc 42.94, Est GFR (MDRD) Af Amer 79, Est GFR (MDRD) Non-Af 65, BUN/Creatinine Ratio 12.4, Glucose 85, Calcium 9.1, Troponin I 0.015 EKG reviewed and showed right bundle branch block with no acute changes. Normal sinus rhythm. Chest x-ray reviewed showed hyperinflated airways with no infiltrate nor any pulmonary vascular congestion. Current Medications Sodium Chloride () 1,000 mls @ 150 mls/hr IV .[facility]6H40M [facility] Last Admin: 03/31/20 13:46 Dose: 150 mls/hr Documented by: Assessment/Plan All Active Problems (Last Updated 02/22/20 @ 08:36 by Dottie Eagle) Chest pain (Acute) 1. Chest pain: Atypical. VIVIAN score of 5. Valerie score of 111 with a in the hospital.percentage of 1.2%. Given his known history of CAD and stent put in less than 2 months ago, the plan is for a chemical nuclear stress test on the . Based on the results of that as well as additional work-up, patient will either be discharged, if all negative, versus cardiology consultation if in the above is abnormal. Patient symptoms are atypical as mentioned above but patient does have some faint erythema on his chest. Certainly not clearly indicative of acute zoster picture as there is no vesicles. This erythema may be related with him just pressing on his chest. Would need to have closer monitoring of this and if any thing that does suggest this being shingles to initiate treatment accordingly. 2. Coronary artery disease: Patient had a Synergy stent placed to his venous graft to the ramus on 02/18/2020. Patient stopped taking clopidogrel after about a week due to dizziness. Did discuss the case with Dr. Smith and explain the patient's symptoms. Both agreed that ticagrelor would not be ideal option for this patient as it could cause shortness of breath and patient already has baseline shortness of breath. So plan would be to initiate him back on clopidogrel by loading him with 300 and then 75 daily thereafter. Patient continues to have symptoms he is to either follow-up or contact Dr. Smith about his symptoms and seeing if other agents, such as Effient, could be used. I had very long conversation with the patient that it is very important that he take these medications as it could cause instance stent thrombosis which could lead to another heart attack or even . He expressed understanding of that. 3. COPD: Not in exacerbation. Continue with albuterol and Breo. 4. VTE prophylaxis: Not indicated this patient is observation status at this point. OBSV E&M: [id number] Initial observation care L2
--- NOTE | 2020-03-31 14:26 | EKG12_ITS ---
Test Reason : CP Blood Pressure : / mmHG Vent. Rate : 065 BPM Atrial Rate : 065 BPM P-R Int : 170 ms QRS Dur : 164 ms QT Int : 472 ms P-R-T Axes : 068 -63 053 degrees QTc Int : 490 ms Normal sinus rhythm Left axis deviation Right bundle branch block Abnormal ECG When compared with ECG of 31-MAR-2020 12:52, MANUAL COMPARISON REQUIRED, DATA IS UNCONFIRMED Confirmed by MARGARETTE GONZALEZ, RENATA ([id number]), assistant film editor SANDRA THORPE ([id number]) on 04/03/2020 1:15:12 PM Referred By: NAKITA Confirmed By:RENATA PFEIFFER MD
--- NOTE | 2020-03-31 14:36 | PCS.PANDOC ---
PANDEMIC DOCUMENTATION INITIATED: Date: 03/31/2020 Time: 6036
[2020-03-31] MEDS: Clopidogrel Bisulfate 300 MG Tablet PO (15:30)
[2020-03-31] MEDS: Albuterol 2.5 MG/3 ML VIAL.NEB. INHALATION (19:35)
[2020-03-31] MEDS: Budesonide Respules 0.5 MG/2 ML AMPUL.NEB. INHALATION (19:35)
[2020-03-31] MEDS: Acetaminophen 325 MG Tablet 650 MG PO (22:17)
[2020-03-31] MEDS: Atorvastatin Calcium 40 MG Tablet PO (22:18)
[2020-04-01 02:20] VITALS: BP 122/61; PULSE 71; RESP 18; TEMP 36.6; O2SAT 95
[2020-04-01 03:00] VITALS: PULSE 61
--- NOTE | 2020-04-01 05:55 | NM_ITS ---
CLINICAL: 85-year-old hypertensive, hypercholesterolemic male with reported history of known coronary atherosclerosis, status post CABG, previous myocardial infarction with current complaint of episodic chest discomfort. REST-REGADENOSON 99m Tc SESTAMIBI MYOCARDIAL PERFUSION SPECT COMPARISON: None available FINDINGS: Following the intravenous administration of 12.0 mCi of 99m Tc sestamibi, the resting myocardial perfusion acquisitions demonstrate relatively uniform radiopharmaceutical concentration throughout all left ventricular segments. The patient was administered intravenous regadenoson (0.4 mgm). Following the intravenous administration of 36.0 mCi of 99m Tc sestamibi, the post regadenoson images reveal likewise normal perfusion throughout all left ventricular myocardial segments. The post stress resting left ventricular ejection fraction is calculated to be 51.0 % by gated SPECT technique. There is evidence of septal wall hypokinesis with compensatory lateral wall hypokinesis with otherwise normal and uniform wall motion and end systolic thickening visualized in the remaining left ventricular myocardial segments. NM/Nuclear Stress Test - Chemical IMPRESSION: 1. NORMAL post WI, CABG REST-REGADENOSON STRESS 99m Tc SESTAMIBI MYOCARDIAL PERFUSION SPECT. A. No evidence of pharmacologically induced left ventricular ischemia. B. Preservation of resting left ventricular systolic function with evidence of post sternotomy epicardial swing*. (Hua et al, J Nucl Med 37: 105P, 1996 Block et al, Circulation II-612, 2001*). Electronically Signed: Karl Higuera DO at 14:40 EST Tel , Service support ,
[2020-04-01 06:12] VITALS: BP 146/61; PULSE 66; RESP 18; TEMP 36.5; O2SAT 95
[2020-04-01] MEDS: Clopidogrel Bisulfate 75 MG Tablet PO (06:16)
[2020-04-01 07:00] VITALS: PULSE 70; PULSE 75; RESP 16; O2SAT 94
[2020-04-01] MEDS: Budesonide Respules 0.5 MG/2 ML AMPUL.NEB. INHALATION (07:00)
[2020-04-01] MEDS: Albuterol 2.5 MG/3 ML VIAL.NEB. INHALATION (07:00)
[2020-04-01 08:24] VITALS: BP 136/61; PULSE 74; RESP 18; TEMP 36.4; O2SAT 97
--- NOTE | 2020-04-01 13:43 | STRESSREP ---
Stress Test Report Stress test report: This is a pharmacological stress test using IV Lexiscan Symptoms: None Indication: Patient had bypass surgery in the past with stenting of the venous graft to the ramus 2 months ago. Patient is admitted for recurrence of atypical chest pain Blood pressure respondents normal. Heart rate response is normal. Stress EKG results: Underlying sinus rhythm with right bundle branch block. There was no further ST-T wave changes There was no arrhythmia, or chest pain Nuclear stress test perfusion imaging study is to be reported separately by radiologist
[2020-04-01 14:20] VITALS: BP 131/59; PULSE 85; RESP 18; TEMP 36.5; O2SAT 95
--- NOTE | 2020-04-01 15:15 | PCM.DC ---
- Discharge Diagnoses Current Active Problems: Current Active and Chronic Problems (Last Reviewed 03/31/20 @ 14:[address] Matthew Graham, DO) Chest pain (Acute) Presence of stent of bypass graft (Chronic ~02/18/20) Lesion: PCI/CATHY of the venous graft to the ramus 02/18/20 Atherosclerosis of coronary artery bypass graft without angina pectoris (Chronic) Essential hypertension (Chronic) History of coronary artery bypass surgery (Chronic ~2002) VIVEROS to the LAD, SVG to the ramus intermedius circumflex branch, SVG to the PDA 1999 History of coronary artery stent placement (Chronic) PVCs (premature ventricular contractions) (Chronic) Atherosclerotic heart disease of [place] coronary artery without angina pectoris (Chronic) Chronic obstructive pulmonary disease (Chronic) Ischemic cardiomyopathy (Chronic) EF 35% You will use the following diet at home:: No restrictions Your food should be the consistency of: Regular Your liquids should be the consistency of: Regular/Thin Discharge Activity: Return to Normal Activity Weight Bearing Status: Full weight bearing Allergies/Adverse Reactions: Allergies iodine Allergy (Severe, Verified 03/31/20 12:48) Rash amlodipine Adverse Reaction (Severe, Verified 03/31/20 12:48) SOB Medications to take at Discharge Cyanocobalamin [Vitamin B12] 500 mcg PO DAILY@0800 09/16/16 Magnesium Oxide [Mag-Ox 400] 400 mg PO DAILY 09/16/16 Multivitamin [Multiple Vitamins] 1 ea PO DAILY 09/16/16 Fluticasone/Vilanterol [Breo Ellipta 100-25 Mcg INH] 1 puff INHALATION DAILY 01/10/19 Red Yeast Rice 600 mg PO DAILY 01/10/19 albuterol sulfate 90 mcg/actuation aerosol inhaler 2 puff INHALATION Q4H PRN PRN 01/18/19 Atorvastatin Calcium [Lipitor] 40 mg PO QHS #30 tab 02/19/20 Aspirin [Aspirin EC] 81 mg PO DAILY #1 tablet. 04/01/20 Clopidogrel Bisulfate [Plavix] 75 mg PO DAILY tablet 04/01/20 The following prescriptions were given: Aspirin [Aspirin EC] 81 mg PO DAILY #1 tablet. Primary Care Physician: Sergio Vann MD [Primary Care Provider] - Please follow up with your Primary Care Physician in: as scheduled Test Results: Test results from this visit will be discussed in further detail at your follow-up appointment, if applicable.
--- NOTE | 2020-04-02 07:38 | PCM.DC.SUM ---
Discharge Date and Diagnosis - Problem List Patient Problems: Active and Suspected Problems (Last Reviewed 03/31/20 @ 14:[address] Matthew Graham DO) Chest pain (Acute) Date of Admission: 03/31/20 Date of Discharge: 04/01/20 - Primary Discharge Diagnosis Acute Problems: Active Problems (Last Reviewed 03/31/20 @ 14:[address] Matthew Graham DO) #1 musculoskeletal chest pain #2 coronary artery disease #3 noncompliance with medical regimen #4 ischemic cardiomyopathy #5 essential hypertension - Secondary Discharge Diagnosis Chronic Problems: Chronic Problems (Last Reviewed 03/31/20 @ 14:[address] Matthew Graham DO) Presence of stent of bypass graft (Chronic ~02/18/20) Lesion: PCI/CATHY of the venous graft to the ramus 02/18/20 Atherosclerosis of coronary artery bypass graft without angina pectoris (Chronic) Essential hypertension (Chronic) History of coronary artery bypass surgery (Chronic ~2002) VIVEROS to the LAD, SVG to the ramus intermedius circumflex branch, SVG to the PDA 1999 History of coronary artery stent placement (Chronic) PVCs (premature ventricular contractions) (Chronic) Atherosclerotic heart disease of [place] coronary artery without angina pectoris (Chronic) Chronic obstructive pulmonary disease (Chronic) Ischemic cardiomyopathy (Chronic) EF 35% Hospital Course and Treatment Operations: None Procedures: Nuclear stress test Summary of Care Provided: The patient is a 85 year old M seen in the emergency room at [facility] with a chief complaint of chest pain that has been intermittent over 1 week. It is accompanied by a some slight shortness of breath. Patient has a diagnosis of COPD. Patient had a history of coronary artery stent placed in January 2020, he stopped his Plavix due to complaints of dizziness. He had been recently instructed to resume the Plavix. Work-up in the emergency room included an EKG which showed a right bundle branch block with no acute changes chest x-ray showed no infiltrate or pulmonary vascular changes, patient's cardiac enzymes were unremarkable. Patient was placed in observation status on PCU, cardiac enzymes were cycled and these remain normal. Patient underwent a pharmacological nuclear stress test which showed no evidence of reversible ischemia. On 04/01/2020, patient was seen and examined: On examination he appeared in good health and spirits. Vital signs as documented. Skin warm and dry and without overt rashes. Neck without JVD, neck was supple, trachea midline, thyroid was normal. Lungs clear bilaterally, normal air movement was noted. Heart exam notable for regular rhythm, normal sounds and absence of murmurs, rubs or gallops. Abdomen unremarkable and without evidence of organomegaly, masses, or abdominal aortic enlargement. Bowel sounds are present, abdomen is not distended. Extremities nonedematous, no cyanosis was noted, no clubbing was noted. Neuro: Cranial nerves II through XII are grossly intact, no focal motor deficits were noted, sensation to light touch and pinprick intact, motor exam 5/5 throughout. Psych: Patient is alert and oriented x3, he does not appear anxious or depressed, he does not appear agitated. Patient was instructed to resume his Plavix at home along with a baby aspirin, he was discharged home in stable condition on 04/01/2020 Patient Problems: Active and Suspected Problems (Last Reviewed 03/31/20 @ 14:[address] Matthew Graham, DO) Chest pain (Acute) - Physical Exam Vitals/I&O's: Vital Signs Temp Pulse Resp BP Pulse Ox 97.7 F L 85 18 131/59 H 95 04/01/20 14:20 04/01/20 14:20 04/01/20 14:20 04/01/20 14:20 04/01/20 14:20 Oxygen Flow Rate (L/min) 2 Oxygen Delivery Method Nasal Cannula Weight: 61.734 kg Body Mass Index (BMI) 21.9 Intake and Output for Last 24 Hours 03/31/20 04/01/20 04/02/20 23:59 23:59 23:59 Intake Total 1480 / 1480 60 / 60 Balance 1480 / 1480 60 / 60 Discharge Activity: Return to Normal Activity Weight Bearing Status: Full weight bearing Home Medications: Medications to take at Discharge Cyanocobalamin [Vitamin B12] 500 mcg PO DAILY@0800 09/16/16 Magnesium Oxide [Mag-Ox 400] 400 mg PO DAILY 09/16/16 Multivitamin [Multiple Vitamins] 1 ea PO DAILY 09/16/16 Fluticasone/Vilanterol [Breo Ellipta 100-25 Mcg INH] 1 puff INHALATION DAILY 01/10/19 Red Yeast Rice 600 mg PO DAILY 01/10/19 albuterol sulfate 90 mcg/actuation aerosol inhaler 2 puff INHALATION Q4H PRN PRN 01/18/19 Atorvastatin Calcium [Lipitor] 40 mg PO QHS #30 tab 02/19/20 Aspirin [Aspirin EC] 81 mg PO DAILY #1 tablet. 04/01/20 Clopidogrel Bisulfate [Plavix] 75 mg PO DAILY tab 04/01/20 Following Prescriptions Were Given to Patient: Aspirin [Aspirin EC] 81 mg PO DAILY #1 tablet. Primary Care Physician: Sergio Vann MD [Primary Care Provider] - Please follow up with your Primary Care Physician in: as scheduled Disposition: Home Minutes spent on discharge:: 31 Patient Condition:: Stable Medical Necessity - Tobacco Use Smoking Status: Current some day smoker Tobacco Use: Pipe Meaningful Use Info Meaningful Use Diagnoses (Choose all that apply): None applicable OBSV E&M: 46536 Observation care discharge
== END 2020-04-01 15:15 | disposition home or self-care (01) ==
LOC: ED 13:18 → PCU 14:15
PROVIDERS: Emergency Provider Emergency Medicine; PCP Family Medicine; Visit Provider Internal Medicine
DX: R07.89 Other chest pain (principal); I25.10 Atherosclerotic heart disease of native coronary artery without angina pectoris; I25.5 Ischemic cardiomyopathy; I10 Essential (primary) hypertension; R06.02 Shortness of breath; I45.10 Unspecified right bundle-branch block; R94.31 Abnormal electrocardiogram [ECG] [EKG]; J44.9 Chronic obstructive pulmonary disease, unspecified; I25.2 Old myocardial infarction; I73.9 Peripheral vascular disease, unspecified; F17.290 Nicotine dependence, other tobacco product, uncomplicated; Z79.899 Other long term (current) drug therapy; Z91.19 Patient's noncompliance with other medical treatment and regimen; Z79.51 Long term (current) use of inhaled steroids; Z95.1 Presence of aortocoronary bypass graft
CPT/HCPCS: 36415; 71045; 78452; 80048; 84484; 85025; 93005; 93017; 94640; 96360; 96361; 99218; 99285; A9500; J7030; A4216; G0378; J2785

== ENCOUNTER → 2020-07-05 10:01 | Outpatient (CLI) | payer MEDICARE, SELFPAY ==
[2020-03-31 14:34] VITALS: BMI 21.9
[2020-07-05 13:14] LABS: Anion Gap 3 (5-15); BUN 15 mg/dL (7-18); BUN/Creat Ratio 13.5 RATIO (10-20); Calcium,Total 9.3 mg/dL (8.5-10.1); Chloride 106 mmol/L (98-107); Cholesterol 170 mg/dL (200); Creatinine, Serum 1.11 mg/dL (0.70-1.30); EST Glomerular Filtration Rate 67 mL/min (>60); Est Glom Filt Rate - Afr Amer 81 mL/min (>60); Glucose 92 mg/dL (74-106); High Density Lipoprotein 67 mg/dL; Potassium 5.1 mmol/L (3.5-5.1); Sodium Level 140 mmol/L (136-145); Triglycerides 76 mg/dL; Very Low Density Lipoprotein 15 mg/dL (5-40)
== END ==
PROVIDERS: PCP Family Medicine; Referring Provider Family Medicine; Visit Provider Family Medicine
DX: I10 Essential (primary) hypertension (principal)
CPT/HCPCS: 36415; 80048; 80061

== ENCOUNTER → 2020-11-14 16:31 | Outpatient (CLI) | payer MEDICARE, SELFPAY ==
[2020-11-14 17:41] LABS: Hematocrit 47.5 % (40-54); Hemoglobin 15.5 g/dL (13.0-16.5); Mean Corp Hgb Conc 32.6 g/dL (32-36); Mean Corpuscular Hgb 32.2 pg (27.0-32.0); Mean Corpuscular Volume 98.8 fL (80-94); Mean Platelet Vol. 9.4 fl (6.2-12.0); Platelet Count 263 K/mm3 (150-450); RBC Distribution Width CV 12.1 % (11.6-14.6); RBC Distribution Width SD 44.1 fl (35.1-43.9); Red Blood Count 4.81 M/mm3 (4.6-6.2); White Blood Count 8.2 K/mm3 (4.4-11.0)
[2020-11-14 18:04] LABS: Anion Gap 5 (5-15); BUN 18 mg/dL (7-18); BUN/Creat Ratio 19.7 RATIO (10-20); Calcium,Total 9.1 mg/dL (8.5-10.1); Chloride 108 mmol/L (98-107); Creatinine, Serum 0.92 mg/dL (0.70-1.30); EST Glomerular Filtration Rate 83 mL/min (>60); Est Glom Filt Rate - Afr Amer 101 mL/min (>60); Glucose 87 mg/dL (74-106); Potassium 4.3 mmol/L (3.5-5.1); Sodium Level 143 mmol/L (136-145); Uric Acid 4.4 mg/dL (3.5-7.2)
== END ==
PROVIDERS: PCP Family Medicine; Referring Provider Family Medicine; Visit Provider Registered Nurse
DX: M20.62 Acquired deformities of toe(s), unspecified, left foot (principal); J44.9 Chronic obstructive pulmonary disease, unspecified
CPT/HCPCS: 36415; 80048; 84550; 85027

== ENCOUNTER → 2021-07-13 | Outpatient (CLI) | payer MEDICARE, SELFPAY ==
[2021-07-13 13:03] LABS: Anion Gap 6 (5-15); BUN 14 mg/dL (7-18); BUN/Creat Ratio 12.8 RATIO (10-20); Calcium,Total 9.1 mg/dL (8.5-10.1); Chloride 107 mmol/L (98-107); Cholesterol 110 mg/dL (200); Creatinine, Serum 1.09 mg/dL (0.70-1.30); EST Glomerular Filtration Rate 68 mL/min (>60); Est Glom Filt Rate - Afr Amer 82 mL/min (>60); Glucose 92 mg/dL (74-106); High Density Lipoprotein 57 mg/dL; Potassium 4.4 mmol/L (3.5-5.1); Sodium Level 141 mmol/L (136-145); Triglycerides 71 mg/dL; Very Low Density Lipoprotein 14 mg/dL (5-40)
== END | disposition home or self-care (01) ==
LOC: MFPLAB 10:35
PROVIDERS: PCP Family Medicine; Referring Provider Family Medicine; Visit Provider Family Medicine
DX: I10 Essential (primary) hypertension (principal)
CPT/HCPCS: 36415; 80048; 80061

== ENCOUNTER → 2022-01-09 | Outpatient (CLI) | payer MEDICARE, SELFPAY ==
[2022-01-09 10:59] LABS: Anion Gap 5 (5-15); BUN 17 mg/dL (7-18); BUN/Creat Ratio 15.3 RATIO (10-20); Calcium,Total 9.4 mg/dL (8.5-10.1); Chloride 107 mmol/L (98-107); Cholesterol 165 mg/dL (200); Creatinine, Serum 1.11 mg/dL (0.70-1.30); EST Glomerular Filtration Rate 67 mL/min (>60); Est Glom Filt Rate - Afr Amer 80 mL/min (>60); Glucose 85 mg/dL (74-106); High Density Lipoprotein 68 mg/dL; Potassium 4.4 mmol/L (3.5-5.1); Sodium Level 142 mmol/L (136-145); Triglycerides 87 mg/dL; Very Low Density Lipoprotein 17 mg/dL (5-40)
== END | disposition home or self-care (01) ==
LOC: MFPLAB 08:35
PROVIDERS: PCP Family Medicine; Referring Provider Family Medicine; Visit Provider Family Medicine
DX: I10 Essential (primary) hypertension (principal)
CPT/HCPCS: 36415; 80048; 80061

== ENCOUNTER → 2022-08-26 | Outpatient (CLI) | payer MEDICARE, SELFPAY ==
[2022-08-26 15:17] LABS: Absolute Lymphocyte Count 1.92 X10^3/uL (0.83-4.51); Basophil# 0.08 X10^3/uL; Basophil% 1.1 % (0-1); Eosinophil# 0.42 X10^3/uL; Eosinophils% 5.8 % (0-5); Hematocrit 50.6 % (40-54); Hemoglobin 16.2 g/dL (13.0-16.5); Lymphocyte # 1.92 X10^3/ul (0.83-4.51); Lymphocyte % 26.5 % (19-41); Mean Corpuscular Hgb 32.5 pg (27.0-32.0); Mean Corpuscular Volume 101.4 fL (80-94); Mean Platelet Vol. 9.8 fl (6.2-12.0); Monocyte# 0.84 X10^3/uL; Monocyte% 11.6 % (0-10); NRBC Flagged by Analyzer 0 % (0-5); Neutrophil # 3.96 X10^3/uL (2.7-7.7); Neutrophil % 54.7 % (47-70); Platelet Count 268 K/mm3 (150-450); RBC Distribution Width CV 12.6 % (11.6-14.6); Red Blood Count 4.99 M/mm3 (4.6-6.2); White Blood Count 7.2 K/mm3 (4.4-11.0)
[2022-08-26 15:54] LABS: AST(SGOT) 29 U/L (15-37); Alanine Aminotransfer ALT/SGPT 23 U/L (16-61); Albumin, Serum 3.9 g/dL (3.2-5.0); Alkaline Phosphatase 106 U/L (45-117); Anion Gap 0 (5-15); BUN 18 mg/dL (7-18); BUN/Creat Ratio 14.9 RATIO (10-20); Calcium,Total 9.7 mg/dL (8.5-10.1); Chloride 109 mmol/L (98-107); Cholesterol 174 mg/dL (200); Creatinine, Serum 1.21 mg/dL (0.70-1.30); EST Glomerular Filtration Rate 60 mL/min (>60); Est Glom Filt Rate - Afr Amer 73 mL/min (>60); Globulin 4.1 g/dL (2.2-4.2); Glucose 76 mg/dL (74-106); High Density Lipoprotein 65 mg/dL; Potassium 4.5 mmol/L (3.5-5.1); Sodium Level 140 mmol/L (136-145); Triglycerides 88 mg/dL; Very Low Density Lipoprotein 18 mg/dL (5-40)
== END | disposition home or self-care (01) ==
LOC: MTLAB 11:44
PROVIDERS: PCP Family Medicine; Referring Provider Family Medicine; Visit Provider Family Medicine
DX: Z01.818 Encounter for other preprocedural examination (principal); I10 Essential (primary) hypertension
CPT/HCPCS: 36415; 80053; 80061; 85025

== ENCOUNTER → 2022-12-06 | Outpatient (CLI) | payer MEDICARE, SELFPAY ==
--- NOTE | 2022-12-06 11:50 | RAD_ITS ---
INDICATION: Concern for SBO EXAMINATION/TECHNIQUE: X-RAY - 3 views XR Abdomen Series W/ Chest 1 View COMPARISON: FINDINGS: --Chest: LINES/DEVICES: Sternotomy wires are present. LUNGS: There is a left basilar infiltrate. No pneumothorax. MEDIASTINUM AND CARDIOVASCULAR STRUCTURES: Cardiac silhouette not enlarged. Central airways and mediastinal contour are unremarkable. BONES AND SOFT TISSUES: There are vertebral changes. --Abdomen: BOWEL GAS PATTERN: Non-obstructive. No bowel or stomach distention. FREE AIR: None visualized. Surgical clips in the right upper quadrant. BONES AND SOFT TISSUES: Degenerative changes and scoliosis. Generalized osteopenic. RAD/Acute Abdomen Inc Chest IMPRESSION: No sign of bowel obstruction. Left basilar infiltrate. Electronically Signed: Kaleb Hernandez DO at 17:09 EDT Reading Location ID and State: [facility] / [place] Tel [phone], Service support ,
[2022-12-06 15:31] LABS: Absolute Lymphocyte Count 1.61 X10^3/uL (0.83-4.51); Absolute Neutrophil Count 4.8 X10^3/uL (2.0-7.7); Basophil# 0.07 X10^3/uL; Basophil% 0.9 % (0-1); Eosinophil# 0.29 X10^3/uL; Eosinophils% 3.9 % (0-5); Hematocrit 46.3 % (40-54); Hemoglobin 14.6 g/dL (13.0-16.5); Lymphocyte # 1.61 X10^3/ul (0.83-4.51); Lymphocyte % 21.8 % (19-41); Mean Corp Hgb Conc 31.5 g/dL (32-36); Mean Corpuscular Hgb 32.3 pg (27.0-32.0); Mean Corpuscular Volume 102.4 fL (80-94); Mean Platelet Vol. 9.9 fl (6.2-12.0); Monocyte# 0.62 X10^3/uL; Monocyte% 8.4 % (0-10); NRBC Flagged by Analyzer 0 % (0-5); Neutrophil # 4.78 X10^3/uL (2.7-7.7); Neutrophil % 64.7 % (47-70); Platelet Count 268 K/mm3 (150-450); RBC Distribution Width CV 12.9 % (11.6-14.6); RBC Distribution Width SD 49.3 fl (35.1-43.9); Red Blood Count 4.52 M/mm3 (4.6-6.2); White Blood Count 7.4 K/mm3 (4.4-11.0)
[2022-12-06 15:52] LABS: ALB/GLOB Ratio 0.8 RATIO (0.9-2.4); AST(SGOT) 22 U/L (15-37); Alanine Aminotransfer ALT/SGPT 23 U/L (16-61); Albumin, Serum 3.3 g/dL (3.2-5.0); Alkaline Phosphatase 86 U/L (45-117); Anion Gap 5 (5-15); BUN 17 mg/dL (7-18); BUN/Creat Ratio 14.9 RATIO (10-20); Calcium,Total 9.2 mg/dL (8.5-10.1); Chloride 109 mmol/L (98-107); Creatinine, Serum 1.14 mg/dL (0.70-1.30); EST Glomerular Filtration Rate 64 mL/min (>60); Est Glom Filt Rate - Afr Amer 78 mL/min (>60); Globulin 3.9 g/dL (2.2-4.2); Glucose 91 mg/dL (74-106); Potassium 4.3 mmol/L (3.5-5.1); Protein, Total 7.2 g/dL (6.4-8.2); Sodium Level 143 mmol/L (136-145)
== END | disposition home or self-care (01) ==
LOC: MTLAB 11:41
PROVIDERS: PCP Family Medicine; Referring Provider Family Medicine; Visit Provider Family Medicine
DX: K59.09 Other constipation (principal)
CPT/HCPCS: 36415; 74022; 80053; 85025

== ENCOUNTER → 2023-01-08 | Outpatient (CLI) | payer MEDICARE, SELFPAY ==
[2023-01-08 10:51] LABS: Anion Gap 4 (5-15); BUN 16 mg/dL (7-18); BUN/Creat Ratio 14.8 RATIO (10-20); Calcium,Total 9.1 mg/dL (8.5-10.1); Chloride 110 mmol/L (98-107); Cholesterol 158 mg/dL (200); Creatinine, Serum 1.08 mg/dL (0.70-1.30); EST Glomerular Filtration Rate 69 mL/min (>60); Est Glom Filt Rate - Afr Amer 83 mL/min (>60); Glucose 91 mg/dL (74-106); High Density Lipoprotein 66 mg/dL; Potassium 3.8 mmol/L (3.5-5.1); Sodium Level 144 mmol/L (136-145); Triglycerides 75 mg/dL; Very Low Density Lipoprotein 15 mg/dL (5-40)
== END | disposition home or self-care (01) ==
LOC: MFPLAB 08:49
PROVIDERS: PCP Family Medicine; Visit Provider Family Medicine
DX: I10 Essential (primary) hypertension (principal)
CPT/HCPCS: 36415; 80048; 80061

== ENCOUNTER → 2023-03-05 | Outpatient (CLI) | payer MEDICARE, SELFPAY ==
--- NOTE | 2023-03-05 10:55 | ART_ITS ---
Reason For Study: Left foot pain Procedure A bilateral lower extremity continuous wave Doppler with analog waveform analysis,segmental pressures,and ankle brachial indexes without exercise. Did not exercise patient on treadmill due to noncompressible vessels and needing oxygen after taking shoes off,. Left Segmental Pressures Left brachial= 132mmHg. Left posterior tibial artery = >254mmHg. Left dorsalis pedis artery = >254mmHg. Right Segmental Pressures Right brachial= 125mmHg. Right posterior tibial artery = >254mmHg. Right dorsalis pedis artery = 120mmHg. Right digit = 67 mmHg. The right dorsalis pedis waveforms are monophasic. The right posterior tibial artery waveforms are biphasic. Indices The right ankle brachial index by the dorsalis pedis is 0.91. The right ankle brachial index by the posterior tibial artery is NC. The right digital-brachial index is 0.51. The left ankle brachial index by the dorsalis pedis is NC. The left ankle brachial index by the posterior tibial artery is NC. VL/Lower Ext Art Exam w/o Exercis Interpretation Summary Right AJAY 0.91, likely artificially elevated due to non-compressible vessels. D oppler/PVR waveforms severely diminished infrapopliteal. Left AJAY not able to be obtained due to non-compressible vessels. Doppler/PVR w aveforms of the left leg severely diminished distal SFA/popliteal, infrapopliteal Ordering Physician: Sergio Vann Referring Physician: Sergio Vann Performed By: Jerri You RVT
== END | disposition home or self-care (01) ==
PROVIDERS: PCP Family Medicine; Referring Provider Family Medicine; Visit Provider Family Medicine
DX: M79.672 Pain in left foot (principal); R09.89 Other specified symptoms and signs involving the circulatory and respiratory systems
CPT/HCPCS: 93923